=== PATIENT | female | born 1950 ===

== ENCOUNTER 2022-10-22 08:58 | Outpatient (CLI) | payer MEDICARE, BC, SELFPAY | END 2022-10-22 08:59 | disposition home or self-care (01) | PROVIDERS: PCP Family Medicine; Visit Provider Orthopaedic Surgery Sports Medicine | DX: Z20.822 Contact with and (suspected) exposure to COVID-19 (principal); Z01.818 Encounter for other preprocedural examination | CPT/HCPCS: 36415; 86850; 86900; 86901 ==

== ENCOUNTER 2022-10-23 10:36 | Day surgery (SDC) | payer MEDICARE, BC, SELFPAY ==
[2022-10-23] VITALS (22 sets, daily range): BP systolic 103–144; BP diastolic 65–91; PULSE 55–81; RESP 12–18; TEMP 35.8–36.6; O2SAT 92–99; BMI 33.9
--- NOTE | 2022-10-23 10:57 | CRLHL7_ITS ---
For Patients: As a result of the Cures Act, medical imaging exams and procedure reports are released immediately into your electronic medical record. You may view this report before your referring provider. If you have questions, please contact your health care provider. Indication: HIP REPLACEMENT POST OP Technique: AP hip centered pelvis and lateral view left hip Findings/Impression: Hardware from a left total hip arthroplasty is in satisfactory position. Bone alignment is normal. No sign of acute fracture. Postop changes are within normal limits. Dictated by Rome Alford MD @ 10/24/2022 10:52:46 AM (Electronically Signed)
[2022-10-23] MEDS: LACTATED RINGERS 1000 ML 1,000 ML 100 ML IV (11:00)
[2022-10-23] MEDS: SODIUM CHLORIDE 0.9 % (FLUSH) 10 ML SYRINGE IVF (11:00)
[2022-10-23] MEDS: ACETAMINOPHEN 500 MG TABLET 1000 MG PO ×2 (11:10→18:39)
[2022-10-23] MEDS: OXYCODONE (CR) 10 MG TAB.ER.12H PO (11:10)
[2022-10-23] MEDS: MIDAZOLAM HCL 1 MG/ML inj IVP (11:25)
[2022-10-23] MEDS: fentaNYL 100 MCG/2 ML inj IVP (11:25)
--- NOTE | 2022-10-23 11:40 | SUR.PREOP ---
TIME?OUT:?1125 PT/gloria deluca RN/patricia he MDA?VERIFICATION?OF?SURGICAL?SITE,?PROCEDURE,?AND?CONSENT OBTAINED?PRIOR?TO?INVASIVE?PROCEDURE.
--- NOTE | 2022-10-23 12:26 | P.NB_ITS ---
Nerve Block Nerve Block Time Seen by Provider: 11:30 Date Seen: 10/23/22 Type of block requested by surgeon for post-operative analgesia: PRIMITIVO/LFCN Side: left Time out performed: Yes Verification of patient name: Yes Verification of date of : Yes Site marking: site marked Name of person performing procedure: Lg Continuous monitoring Was continuous monitoring of O2 sat, B/P, cardiac monitor technician, recorded every 15 minutes?: Yes Procedure Checklist: sterile prep, needles and gloves Ultrasound guided. Images saved: Yes Medications given in 5ml increments after negative aspiration: Ropivicaine %: 0.5 mL: 30 Needle gauge: 20 Decadron (mg): 10 Precedex (mcg): 25 Patient tolerated procedure well: Yes Additional comments: Needle noted below psoas tendon needle noted adjacent to LFCN Block Charges Block Charge (with Pro Fee): Other Periph Nerve Block Use of Ultrasound Machine for Block: Yes- US Guidance/pain block
--- NOTE | 2022-10-23 12:26 | W.ANESCHARGE ---
Anesthesia Charges Start Date/Time Anesthesia Start Date: 10/23/22 Anesthesia Start Time: 12:37 Stop Date/Time Anesthesia Stop Date: 10/23/22 Anesthesia Stop Time: 15:18 Summary Extremes of Age - Over 70 or under 1: MDA
[2022-10-23] MEDS: CEFAZOLIN 2 GM in 0.9 % SODIUM CHLORIDE Mini-bag 100 ML IVPB ×2 (12:45→18:40)
--- NOTE | 2022-10-23 12:45 | CRLHL7_ITS ---
For Patients: As a result of the Cures Act, medical imaging exams and procedure reports are released immediately into your electronic medical record. You may view this report before your referring provider. If you have questions, please contact your health care provider. Indication: Hip replacement surgery Technique: AP hip fluoroscopic image. Fluoroscopy time 38.6 seconds. Findings/Impression: Hardware from a left total hip arthroplasty is in satisfactory position. Dictated by Rome Alford MD @ 10/24/2022 10:49:29 AM (Electronically Signed)
[2022-10-23] MEDS: TRANEXAMIC ACID 100 MG/ML INJ 1000 MG IV (12:47)
--- NOTE | 2022-10-23 14:22 | P.ORPRC_ITS ---
Procedure Note Date of procedure: 10/23/22 Procedure: PREOPERATIVE DIAGNOSIS: 1. Left hip osteoarthritis, severe, primary POSTOPERATIVE DIAGNOSIS: 1. Left hip osteoarthritis, severe, primary PROCEDURE: 1. Left total hip arthroplasty-anterior approach 2. 66871 - intraoperative fluoroscopy up to 1 hour. SURGEON: Kahlil Dickson MD. POLLUTION CONTROL CHEMIST: Chris Mahoney PA-C; RAFAEL Almazan - Of note, a skilled assistant oceanographer was critical for this case to aid in patient positioning, tissue retraction, limb manipulation/positioning, dislocation/relocation, patient safety, and closure. ANESTHESIA: Spinal anesthetic EBL: 300 mL IMPLANTS: DePuy J&J uncemented total hip [place] cup size 50, hole eliminator, +0 neutral liner Actis stem, standard offset, size 5 +1 mm ceramic 32mm head. COMPLICATIONS: None evident INDICATIONS: The patient is a pleasant 72-year-old female who has experienced severe left hip pain and difficulty bearing weight. Workup included x-rays which revealed severe osteoarthrosis in the hip. Given the deformity, the dysfunction, and the pain, as well as the failure of nonoperative management, recommendation was made for surgery. FINDINGS: Full-thickness chondral loss throughout the femoral head as well as superiorly on the acetabulum. Moderate effusion upon entering the joint. Significant scarring of the capsule to the femoral neck DESCRIPTION OF PROCEDURE: Following a thorough discussion of risks, benefits, and alternatives consent was obtained and the left hip was marked. The patient was brought to the operating room and placed supine on the operating table. Induction of anesthesia was undertaken. 2 g IV Ancef and 1 g tranexamic acid was administered within 1 hr of incision preoperatively. Proper time-out was performed identifying proper patient, site, procedure. The operative extremity was prepped and draped in the appropriate sterile fashion using ChloraPrep after the patient was positioned on the [place] table with head in neutral alignment and all bony prominences well padded. C-arm fluoroscopic imaging was utilized to confirm proper pelvis rotation and position, and to get true AP films of both the contralateral left, and the affected left hip. This is for comparison. A longitudinal incision was made starting approximately 1 cm distal to the ASIS, and 3-4 cm lateral. The incision was extended distally aiming toward the lateral border the patella. Sharp incision through skin and bovie cautery thr ough the subcutaneous tissue allowed identification of the TFL fascia. This was sharply divided, and the fascia bluntly released from the muscle fibers as we dissected medial. Upon coming to the medial border, we were able to retract the TFL laterally, and penetrated the deeper fascia and identify the crossing circumflex vessels. These were ligated/cauterized. The rectus was elevated from the capsule, and retractors placed laterally and medially along the femoral neck to help with visualization of the capsule. We then performed an inverted T capsulotomy. The capsule was tagged for later repair. Retractors were placed inside the capsule. The femoral neck was visualized after releasing medially down to the lesser trochanter, along the saddle laterally, and up onto the acetabulum. The femoral neck cut was made in line with our preoperative templating. The head was removed in a single piece, and sized. We turned our attention to acetabular preparation. Initially, the labrum was r esected from around the perimeter, the pulvinar was excised, allowing us to visualize the false wall. We started the reaming with a 43 mm reamer. This was medialized down to the true wall. We then enlarged our reamers sequentially up to one size less than the selected cup size. We trialed at the same size and found it to have an excellent fit. The selected cup was then opened, inserted, and impacted in line with the goal of 40-45? of abduction, and 20-25? of anteversion. This was confirmed on C-arm fluoroscopic imaging to be in the appropriate/goal position. Once the cup was placed we placed a hole eliminator and a liner consistent with preop planning. Attention was turned to the femoral preparation. The limb was extended, externally rotated, and adducted. The posteromedial capsule was released, as retractors were placed allowing excellent access to the proximal femur. Initially a box car bracer was followed by canal finder followed by various broaches. We broached sequentially up to size noted above, found it to have excellent rotational control, and trialing various heads and necks, revealed that appropriate neck offset, and the above noted head size provided the greatest stability, and gnosticism of length, and offset. C-arm fluoroscopic imaging confirmed position of the stem, as well as leg lengths, which were compared with the pre procedure all fluoroscopic images. Trial implants were removed, the real femoral stem inserted, as was the ceramic head. After reducing, the leg was placed through range of motion and stability was confirmed anterior, posterior, and lateral. A 3 min Betadine soak was then performed, and thorough irrigation with normal saline followed. Closure of the capsule was performed with #1 PDS. Bleeding was confirmed to be controlled at this stage, and the TFL fascia was closed with #0 strata fix. Subcutaneous, and subcuticular closure was performed with 2-0 Vicryl and 4-0 Monocryl, respectively. Dressings were applied, and the patient was awoken from anesthesia and transferred the PACU in stable condition. A skilled assistant oceanographer was critical for this case to aid in patient positioning, tissue retraction, proximal femur exposure, limb manipulation/positioning, dislocation/relocation, patient safety, and closure. PLAN: 1. Weight bear as tolerated operative extremity. 2. 23 hr perioperative antibiotics. 3. Ice. 4. PT/OT consults for ambulation assistance/mobility education. 5. Social work consult for discharge planning. 6. DVT prophylaxis with at SCDs, [place], and Xarelto x5 days followed by aspirin for a total of 1 month..
--- NOTE | 2022-10-23 15:21 | W.ANESCHARGE ---
Anesthesia Charges Start Date/Time Anesthesia Start Date: 10/23/22 Anesthesia Start Time: 12:37 Stop Date/Time Anesthesia Stop Date: 10/23/22 Anesthesia Stop Time: 15:18 Summary Extremes of Age - Over 70 or under 1: SERVICING MANAGER
[2022-10-23] MEDS: LACTATED RINGERS 1000 ML 1,000 ML 75 ML IV (16:32)
--- NOTE | 2022-10-23 16:59 | P.IMCN_ITS ---
Date of Consult Patient: Master Patient Consult date: 10/23/22 Requesting Physician: Orthopedics Primary Care Provider: Axel Tidwell DO Consult Narrative Reason for consult: Manage postop HTN, DMT2, nephrolithiasis, HLD Narrative: Fransisca Zepeda is a 72 year old woman with known severe left coxarthosis, presents for elective left total hip arthroplasty. This is undertaken successfully under spinal anesthesia. Estimated blood loss 300 mL. No obvious overt complication postoperatively. Pain well managed at this time. Review of Systems Status of ROS: Reports: 10 or more systems reviewed and unremarkable except as noted in History and below Narrative: Generally does well at home. No recent trauma, injury, illness, or travel. Denies angina, anginal equivalent. Denies syncope or near-syncope. Denies dyspnea at rest, paroxysmal nocturnal dyspnea, or orthopnea. Denies dependent edema. Denies nausea vomiting. Denies palpitations or chest fluttering. Denies fevers, rigors, diaphoresis. No dysuria, urgency, frequency, or eryn turia. No diarrhea or constipation. No new rashes. Denies night sweats, weight loss, weight gain. No focal motor neurologic deficits. Denies myalgias. Acknowledges arthralgias including of the left hip. She designates her daughter, Unique, as her power of assistant prosecuting attorney for health should that be required. Unique's telephone number is [phone]. Patient requests full resuscitation in the event of cardiopulmonary demise. [facility] Medical History (Updated 10/23/22 @ 17:07 by Israel Sy MD) Bradycardia Chronic kidney disease, stage 3 Complete atrioventricular block DDD (degenerative disc disease), lumbar Degenerative joint disease (DJD) of lumbar spine Depression Diabetes Diabetes mellitus type 2 in obese Elevated cholesterol Elevated liver enzymes Endometrioid carcinoma Endometriosis Episode of altered cognition Fatty liver Foraminal stenosis of lumbar region Greater trochanteric bursitis of right hip History of migraine headaches History of nephrolithiasis History of vaginal delivery Hyperlipidemia Hypertension Hypoglycemia Incontinence of urine Migraine headache Mixed hearing loss, bilateral Osteoarthritis of left hip Otosclerosis Pre-syncope Sleep apnea Tendinitis involving right hip abductors Vitamin D deficiency Surgical History H/O: hysterectomy History of arthroscopy of right shoulder (06/11/07) History of carpal tunnel surgery of left wrist (05/29/16) History of carpal tunnel surgery of right wrist (04/24/16) History of ear surgery History of lumbar laminectomy History of total right hip arthroplasty (08/20/07) Status post open reduction with internal fixation (ORIF) of fracture of ankle (~2016) Status post placement of cardiac pacemaker Family History Mother CHF (congestive heart failure) High blood pressure Heart disease Brother CHF (congestive heart failure) High blood pressure Diabetes Father Alzheimers disease Psychiatric illness Social History Smoking Status: Never smoker Do you use any of these nicotine containing products: None Second hand tobacco smoke exposure: No How often do you have a drink containing alcohol: 2-4 times a month Alcohol type: beer and hard liquor How many standard drinks containing alcohol do you have on a typical day: 1 or 2 How often do you have six or more drinks on one occasion: Never AUDIT-C Alcohol total score: 2 Non-prescribed substance use: denies use Caffeine: Yes (coffee, 1-2 cups/day) Meds Home Medications and Allergies Home Medications Medication Instructions Recorded Confirmed Type amlodipine 5 mg tablet 5 mg PO DAILY 09/17/22 10/23/22 History dulaglutide 3 mg/0.5 mL 3 mg subcut Q7D 09/17/22 10/23/22 History subcutaneous pen injector (Trulicity) escitalopram oxalate 10 mg tablet 10 mg PO DAILY 09/17/22 10/23/22 History flash glucose sensor (FreeStyle #1 ea 09/17/22 09/17/22 History Sofia 14 Day Sensor kit) gabapentin 100 mg capsule 100 mg PO HS 09/17/22 10/23/22 History pen needle, diabetic 32 gauge x #50 ea 09/17/22 09/17/22 History 5/32 (BD Ultra-Fine Stormy Pen Needle) sodium bicarbonate 650 mg tablet 650 mg PO BID 09/17/22 10/23/22 History acetaminophen 500 mg tablet 1,000 mg PO TID 09/19/22 10/23/22 History aspirin 81 mg tablet,delayed 81 mg PO DAILY 09/19/22 10/23/22 History release cholecalciferol (vitamin D3) 25 1,000 unit PO DAILY 09/19/22 10/23/22 History mcg (1,000 unit) capsule oxycodone 5 mg tablet 5 mg PO BID PRN 09/19/22 10/23/22 History diclofenac sodium 1 % topical gel 2 g topical QID 10/17/22 10/23/22 History Allergies Allergy/AdvReac Type Severity Reaction Status Date / Time pravastatin Allergy Unknown myalgia Verified 10/23/22 15:30 exenatide Allergy Diarrhea Verified 10/23/22 15:30 NSAIDS (Non-Steroidal Allergy Verified 10/23/22 10:49 Anti-Inflamma pioglitazone Allergy Verified 10/23/22 15:30 rosuvastatin AdvReac myalgia Verified 10/23/22 15:30 Exam Narrative: Exam Narrative: Appears comfortable, no acute distress. Can indeed move her toes now. Alert, oriented to self, place, time, situation. Friendly, cooperative, articulate. Mood and affect are congruent. Neck is supple. Midline trachea. No JVD or hepatojugular reflux. No carotid bruits. No lymphadenopathy in the pre or postauricular chains, anterior-posterior cervical chains, supra infraclavicular fossa, submandibular or submental fossa, or axilla bilaterally. Lungs are clear to auscultation without wheezing, rhonchi, or rales. No CVA tenderness. Heart tones with regular rhythm, normal S1-S2. No murmur, gallop, or rub. I can not palpate the pacemaker in the left upper chest, no fluctuance, erythema, induration. Abdomen with active bowel sounds, soft, nontender. Skin is warm, dry, intact. I do not evaluate surgical incision site. Const: Vital Signs, click to edit/add: Vital Signs - 24 hr 10/23/22 11:16 10/23/22 11:24 10/23/22 11:30 Temperature 97.9 F Pulse Rate 81 71 69 Pulse Rate [Pulse Oximeter] Respiratory Rate 18 18 18 Blood Pressure 130/82 144/91 H 141/85 H Blood Pressure [Ri ght Arm] Pulse Oximetry 95 99 99 Oxygen Delivery Me thod Room Air Nasal Cannula Nasal Cannula Oxygen Flow Rate 2 2 10/23/22 11:45 10/23/22 12:00 10/23/22 12:15 Temperature Pulse Rate 64 64 69 Pulse Rate [Pulse Oximeter] Respiratory Rate 16 16 16 Blood Pressure 116/73 103/73 115/76 Blood Pressure [Ri ght Arm] Pulse Oximetry 99 99 98 Oxygen Delivery Me thod Nasal Cannula Nasal Cannula Nasal Cannula Oxygen Flow Rate 2 2 2 10/23/22 12:30 10/23/22 15:15 10/23/22 15:40 Temperature 98 F Pulse Rate 63 61 55 L Pulse Rate [Pulse Oximeter] Respiratory Rate 16 16 16 Blood Pressure 125/78 118/73 133/81 Blood Pressure [Ri ght Arm] Pulse Oximetry 99 96 98 Oxygen Delivery Me thod Nasal Cannula Room Air Oxygen Flow Rate 2 10/23/22 15:20 10/23/22 15:25 10/23/22 15:30 Temperature Pulse Rate 59 L 58 L 58 L Pulse Rate [Pulse Oximeter] Respiratory Rate 16 12 12 Blood Pressure 117/75 126/82 123/78 Blood Pressure [Ri ght Arm] Pulse Oximetry 98 98 98 Oxygen Delivery Me thod Room Air Oxygen Flow Rate 10/23/22 15:35 10/23/22 15:45 10/23/22 16:00 Temperature 97.5 F L 96.4 F L Pulse Rate 61 59 L 58 L Pulse Rate [Pulse Oximeter] Respiratory Rate 12 16 14 Blood Pressure 131/75 133/88 Blood Pressure [Ri ght Arm] 119/65 Pulse Oximetry 97 98 Oxygen Delivery Me thod Room Air Room Air Oxygen Flow Rate 10/23/22 16:15 Temperature 97.1 F L Pulse Rate Pulse Rate [Pulse Oximeter] 56 L Respiratory Rate 14 Blood Pressure Blood Pressure [Ri ght Arm] 125/67 Pulse Oximetry 94 Oxygen Delivery Me thod Room Air Oxygen Flow Rate Documenting provider has reviewed patient's vital signs: yes Assessment and Plan Assessment and plan (1) Osteoarthritis of left hip: Status: Acute (2) S/P total left hip arthroplasty: Status: Acute (3) Hypertension: Status: Acute (4) Diabetes mellitus type 2 in obese: Status: Acute (5) Hyperlipidemia: Status: Acute (6) History of nephrolithiasis: Status: Acute (7) Pacemaker: Status: Acute Plan 1. Reviewed impression with patient and daughter. Answered their questions. 2. Sliding scale insulin for blood sugar management while in hospital. 3. Restart amlodipine tomorrow morning for hypertension. 4. Continue with escitalopram and sodium bicarbonate. 5. Agree with perioperative antibiotic prophylaxis. 6. Agree with postoperative venous thromboembolism prophylaxis. 7. Hospitalist will be available to assist while patient is in the hospital. 8. From hospitalist perspective, patient may be discharged from the hospital as soon as Orthopedic surgery makes a determination of this. 9. Patient and daughter are agreeable to above stated plans and recommendations.
[2022-10-23] MEDS: OXYCODONE 5 MG TABLET PO (19:20)
[2022-10-23] MEDS: SENNOSIDES 1 TAB TABLET 2 TAB PO (21:40)
[2022-10-23] MEDS: GABAPENTIN 100 MG CAPSULE PO (21:41)
[2022-10-23] MEDS: SODIUM BICARBONATE 650 MG TABLET PO (21:41)
--- NOTE | 2022-10-23 22:10 | PC.NURSE ---
Blood glucose at HS 267 per primary nurse. SSI given as ordered. Updated Dr. Sy, per MD no need to draw lab glucose. To recheck blood glucose at 0200 and apply sliding scale as needed.
[2022-10-24] MEDS: ACETAMINOPHEN 500 MG TABLET 1000 MG PO ×3 (01:23→11:51)
[2022-10-24 02:47] VITALS: TEMP 36.4
[2022-10-24 03:00] VITALS: BP 123/70; PULSE 72; RESP 16; TEMP 36.6; O2SAT 96
[2022-10-24] MEDS: CEFAZOLIN 2 GM in 0.9 % SODIUM CHLORIDE Mini-bag 100 ML IVPB ×2 (03:20→10:28)
[2022-10-24] MEDS: OXYCODONE 5 MG TABLET PO ×3 (03:56→15:20)
[2022-10-24] MEDS: LACTATED RINGERS 1000 ML 1,000 ML 75 ML IV (05:23)
--- NOTE | 2022-10-24 05:58 | PC.NURSE ---
VSS on 1L of O2 via NC. Patient is alert and oriented x3, able to verbalize needs to staff. Edward is managed with PRN Oxycodone 5m x2 and scheduled Tylenol. Patient was up to bathroom x2 with assist of one using gait belt and walker, voiding adequately. Pt is continent of bowel and bladder. Patient had elevated BG of 467, 12 units given per sliding scale. MD notified and ordered to rechecked BG @ 02:00. BG rechecked with 362, 10 units given. Patient is stable, no s/s of hyperglycemia noted. Call light within reach.
[2022-10-24 06:42] LABS: Immature Granulocytes Pct Auto 0.2 %; Lymphocytes Percent Auto 6.8 % (20-44); Mean Corpuscular HGB Conc 33 gm/dL (32-36); Mean Corpuscular Hemoglobin 30 pg (26-34); Mean Corpuscular Volume 91 fL (80-100); Monocytes Percent Auto 4.9 % (0.0-11.0); Neutrophils Percent Auto 88.1 % (42.0-72.0); Platelet Count* 180 K/uL (140-440); RDW Coefficient of Variation % 13.1 % (11.5-15.5); Red Blood Count 3.98 m/uL (4.00-5.20); White Blood Count* 13.59 K/uL (4.50-11.00)
[2022-10-24 06:44] LABS: Slide Review Reflex No
[2022-10-24 06:54] LABS: Potassium* 4.4 mmol/L (3.6-5.1); Sodium* 136 mmol/L (135-149)
[2022-10-24 06:57] LABS: Creatinine* 0.8 mg/dL (0.5-1.5); Est. Creatinine Clearance* 39.63; Estimated Glomerular Filt Rate 78 ml/min
[2022-10-24 06:58] LABS: Blood Urea Nitrogen* 22 mg/dL (7-30)
[2022-10-24 08:10] VITALS: BP 114/66; PULSE 75; RESP 14; TEMP 36.7; O2SAT 94
[2022-10-24] MEDS: AMLODIPINE 5 MG TABLET PO (09:09)
[2022-10-24] MEDS: SODIUM BICARBONATE 650 MG TABLET PO (09:09)
[2022-10-24] MEDS: RIVAROXABAN 10 MG TABLET PO (09:09)
[2022-10-24] MEDS: SENNOSIDES 1 TAB TABLET 2 TAB PO (09:09)
[2022-10-24] MEDS: ESCITALOPRAM 10 MG TABLET PO (09:09)
[2022-10-24 11:44] VITALS: BP 136/73; PULSE 79; RESP 18; TEMP 37.2; O2SAT 92
--- NOTE | 2022-10-24 12:28 | PM.ORPN ---
Subjective Subjective Date Seen: 10/24/22 Principal diagnosis: Status postop day 1, left total hip arthroplasty - anterior approach Interval history: Patient reports doing well. No acute events over night. Pain managed with scheduled /PRN medications and ice. DVT prophylaxis rivaroxaban, bilateral knee high Brown stockings, and SCDs. Denies fevers, chills, aches, N/V, CP, SOB/ZARATE, tachycardia, or lightheadedness. Of note, she reports to me a 40 lb weight loss over the last few months, intentional when she switched diabetes medication. Ortho Exam Narrative Exam Narrative: -Patient appears comfortable in recliner; no apparent acute distress -Alert and oriented times 3 -Operative hip swollen; soft tissues supple; no obvious erythema. Warmth appropriate -Surgical dressing clean, dry, intact; no obvious drainage, no erythematous streaking peripheral to the bandage -Bilateral calves soft and supple; no significant swelling, edema, tenderness, erythema, discoloration, warmth, or palpable cords -2+ DP/PT pulses, intact dermatomes and myotomes distally (5/5 strength). No numbness about the lateral femoral cutaneous nerve distribution. Const Vital Signs, click to edit/add: Vital Signs - 24 hr 10/23/22 12:30 10/23/22 15:15 10/23/22 15:40 Temperature 98 F Pulse Rate 63 61 55 L Pulse Rate [Pulse Oximeter] Respiratory Rate 16 16 16 Blood Pressure 125/78 118/73 133/81 Blood Pressure [Right Arm] Pulse Oximetry 99 96 98 Oxygen Delivery Method Nasal Cannula Room Air Oxygen Flow Rate 2 10/23/22 15:20 10/23/22 15:25 10/23/22 15:30 Temperature Pulse Rate 59 L 58 L 58 L Pulse Rate [Pulse Oximeter] Respiratory Rate 16 12 12 Blood Pressure 117/75 126/82 123/78 Blood Pressure [Right Arm] Pulse Oximetry 98 98 98 Oxygen Delivery Method Room Air Oxygen Flow Rate 10/23/22 15:35 10/23/22 15:45 10/23/22 16:00 Temperature 97.5 F L 96.4 F L Pulse Rate 61 59 L 58 L Pulse Rate [Pulse Oximeter] Respiratory Rate 12 16 14 Blood Pressure 131/75 133/88 Blood Pressure [Right Arm] 119/65 Pulse Oximetry 97 98 Oxygen Delivery Method Room Air Room Air Oxygen Flow Rate 10/23/22 16:15 10/23/22 16:30 10/23/22 16:45 Temperature 97.1 F L 96.8 F L Pulse Rate Pulse Rate [Pulse Oximeter] 56 L 61 63 Respiratory Rate 14 16 Blood Pressure Blood Pressure [Right Arm] 125/67 123/67 122/71 Pulse Oximetry 94 93 92 Oxygen Delivery Method Room Air Room Air Room Air Oxygen Flow Rate 10/23/22 17:00 10/23/22 17:30 10/23/22 18:00 Temperature 97.1 F L 97.5 F L 97.3 F L Pulse Rate Pulse Rate [Pulse Oximeter] 62 65 68 Respiratory Rate 18 16 16 Blood Pressure Blood Pressure [Right Arm] 124/77 142/81 H 135/89 Pulse Oximetry 92 92 92 Oxygen Delivery Method Room Air Room Air Room Air Oxygen Flow Rate 10/23/22 23:00 10/23/22 23:00 10/24/22 02:47 Temperature 97.5 F L 97.5 F L Pulse Rate Pulse Rate [Pulse Oximeter] 76 76 Respiratory Rate 16 16 Blood Pressure Blood Pressure [Right Arm] 116/73 Pulse Oximetry 96 Oxygen Delivery Method Room Air Oxygen Flow Rate 10/24/22 03:00 10/24/22 08:10 10/24/22 11:44 Temperature 97.8 F 98.1 F 99.0 F Pulse Rate Pulse Rate [Pulse Oximeter] 72 75 79 Respiratory Rate 16 14 18 Blood Pressure Blood Pressure [Right Arm] 123/70 114/66 136/73 Pulse Oximetry 96 94 92 Oxygen Delivery Method Room Air Room Air Oxygen Flow Rate Assessment and Plan Assessment and plan (1) Osteoarthritis of left hip: Status: Resolved (2) S/P total left hip arthroplasty: Problem details: FABIAN-AA (10/23/2022, Dr. Dickson) Status: Acute (3) Hypertension: Status: Acute (4) Diabetes mellitus type 2 in obese: Status: Acute (5) Hyperlipidemia: Status: Acute (6) History of nephrolithiasis: Status: Acute (7) Pacemaker: Status: Acute Plan - Complete 23 hour perioperative antibiotics. - PT/OT consult for education and assistance. - Social work consult for discharge planning - Prescribed analgesics as needed - DVT prophylaxis: Rivaroxaban, bilateral knee high Brown Hose stockings and SCDs - Anticipation is for discharge to home with family 10/24/2022 if the patient remains medically stable, pain is controlled, and they are safe with mobilization.
--- NOTE | 2022-10-24 12:31 | P.DS_ITS ---
DS: Providers Provider Date Seen: 10/24/22 Date of admission: Med/Surg Recovery 10/23/2022 Primary care physician: Axel Tidwell DO Consults: 10/23/22 15:59 Consult to Occupational Therapy [CONS] Routine Comment: Reason(s) for OT Consult:: ADLs Prior to Discharge Any Restrictions?:: No Restrictions Comment: Consult to Physical Therapy [CONS] Routine Comment: Ambulate in the [place] today Reason(s) for PT Consult:: Evaluate and Treat Any Restrictions?:: No Restrictions Comment: Nursing Activity Consult to Physician [CONS] Routine Comment: Consulting Provider: Hospitalists Has provider been notified: No 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 Dickson) DS: Summary Hospital Course Hospital Course: The patient has a history of left hip osteoarthritis, primary, severe. After appropriate preoperative evaluation, the patient underwent left total hip arthroplasty. Postoperatively given anticoagulation for deep vein thrombosis prophylaxis. They progressed to PT/OT and were felt ready and prepared for discharge to home with appropriate pain medication and anticoagulation medications. Status at Discharge Functional status at discharge: uses cane/walker Overall status at discharge: patient is progressing back to baseline Time Spent with Patient Time attestation: Total time spent providing and/or coordinating discharge services: Time spent: Less than 30 minutes Exam Const: Vital Signs, click to edit/add: Vital Signs - 24 hr 10/23/22 15:15 10/23/22 15:40 10/23/22 15:20 Temperature 98 F Pulse Rate 61 55 L 59 L Pulse Rate [Pulse Oximeter] Respiratory Rate 16 16 16 Blood Pressure 118/73 133/81 117/75 Blood Pressure [Ri ght Arm] Pulse Oximetry 96 98 98 Oxygen Delivery Me thod Room Air 10/23/22 15:25 10/23/22 15:30 10/23/22 15:35 Temperature Pulse Rate 58 L 58 L 61 Pulse Rate [Pulse Oximeter] Respiratory Rate 12 12 12 Blood Pressure 126/82 123/78 131/75 Blood Pressure [Ri ght Arm] Pulse Oximetry 98 98 97 Oxygen Delivery Me thod Room Air 10/23/22 15:45 10/23/22 16:00 10/23/22 16:15 Temperature 97.5 F L 96.4 F L 97.1 F L Pulse Rate 59 L 58 L Pulse Rate [Pulse Oximeter] 56 L Respiratory Rate 16 14 14 Blood Pressure 133/88 Blood Pressure [Ri ght Arm] 119/65 125/67 Pulse Oximetry 98 94 Oxygen Delivery Me thod Room Air Room Air Room Air 10/23/22 16:30 10/23/22 16:45 10/23/22 17:00 Temperature 96.8 F L 97.1 F L Pulse Rate Pulse Rate [Pulse Oximeter] 61 63 62 Respiratory Rate 16 18 Blood Pressure Blood Pressure [Ri ght Arm] 123/67 122/71 124/77 Pulse Oximetry 93 92 [facility] 10/23/22 17:30 10/23/22 18:00 10/23/22 23:00 Temperature 97.5 F L 97.3 F L Pulse Rate Pulse Rate [Pulse Oximeter] 65 68 76 Respiratory Rate 16 16 16 Blood Pressure Blood Pressure [Ri ght Arm] 142/81 H 135/89 Pulse Oximetry 92 92 [facility] Room Air 10/23/22 23:00 10/24/22 02:47 10/24/22 03:00 Temperature 97.5 F L 97.5 F L 97.8 F Pulse Rate Pulse Rate [Pulse Oximeter] 76 72 Respiratory Rate 16 16 Blood Pressure Blood Pressure [Ri ght Arm] 116/73 123/70 Pulse Oximetry 96 96 [facility] 10/24/22 08:10 10/24/22 11:44 Temperature 98.1 F 99.0 F Pulse Rate Pulse Rate [Pulse Oximeter] 75 79 Respiratory Rate 14 18 Blood Pressure Blood Pressure [Ri ght Arm] 114/66 136/73 Pulse Oximetry 94 92 Oxygen Delivery Me thod Room Air Room Air DS: Data Data Completed and Pending Labs on day of discharge: Labs from last 24 hours 10/24/22 10/24/22 05:45 05:45 WBC 13.59 H RBC 3.98 L Hgb 12.0 Hct 36.0 MCV 91 MCH 30 MCHC 33 RDW Coeff of Alicia 13.1 Plt Count 180 Neut % (Auto) 88.1 H Lymph % (Auto) 6.8 L [place] % (Auto) 4.9 Eos % (Auto) 0.0 Baso % (Auto) 0.0 Neut # (Auto) 12.00 H Lymph # (Auto) 0.90 [place] # (Auto) 0.70 Eos # (Auto) 0.00 Baso # (Auto) 0.00 Sodium 136 Potassium 4.4 BUN 22 Creatinine 0.8 Estimated Creat Clear 39.63 Estimated GFR 78 Discharge Plan Discharge Disposition: Home, Self-Care Discharging Surgeon: Kahlil Dickson Follow-Up Appointment: 1 week PO with ESTHER Perez Prescriptions: New sennosides-docusate sodium [Senna-S] 8.6-50 mg tablet 1 - 4 tab-cap PO BID PRN (Reason: constipation) Qty: 60 0RF Rx Instructions: Hold medication if experiencing loose stools. aspirin 81 mg tablet,delayed release (DR/EC) 81 mg PO BID Qty: 50 0RF Rx Instructions: Medication to help prevent blood clots postoperatively; take TWICE daily. oxycodone 5 mg tablet 2.5 - 5 mg PO Q4-6H MDD 6 PRN (Reason: pain) Qty: 42 0RF Rx Instructions: Take as needed for postop pain: 2.5mg mild pain, 5mg moderate-severe pain; wean as tolerated. rivaroxaban 10 mg tablet 10 mg PO DAILY Qty: 4 0RF Rx Instructions: Medication for deep vein clot prevention post surgery. Complete this medication before starting Aspirin. Continued Trulicity 3 mg/0.5 mL pen injector 3 mg subcut Q7D escitalopram oxalate 10 mg tablet 10 mg PO DAILY amlodipine 5 mg tablet 5 mg PO DAILY (DME) pen needle, diabetic [BD Ultra-Fine Stormy Pen Needle] 32 gauge x 5/32 needle See Rx Instructions .ROUTE .MEDSUPPLY Qty: 50 Rx Instructions: As directed sodium bicarbonate 650 mg tablet 650 mg PO BID gabapentin 100 mg capsule 100 mg PO HS (DME) FreeStyle Sofia 14 Day Sensor Kit See Rx Instructions .ROUTE .MEDSUPPLY Qty: 1 Label Comments: USE 1 SENSOR TO MONITOR BLOOD GLUCOSE FOR 14 DAYS, AFTER 14 [address] WITH NEW SENSOR Rx Instructions: As directed cholecalciferol (vitamin D3) 25 mcg (1,000 unit) capsule 1,000 unit PO DAILY acetaminophen 500 mg tablet 1,000 mg PO TID Rx Instructions: NO MORE THAN 4000 MG/DAY diclofenac sodium 1 % gel 2 g topical QID amoxicillin 500 mg capsule 2,000 mg PO ONCE Qty: 4 3RF Rx Instructions: Take 4 capsules (2000mg) 1 hour prior to dental appointment. Held aspirin 81 mg tablet,delayed release (DR/EC) 81 mg PO DAILY Hold Instructions: Resume on 11/21/22. Resume this dose upon completion of dosing prescribed by orthopedic surgery for post-operative blood clot prevention. Discontinued oxycodone 5 mg tablet 5 mg PO BID PRN Activity Level: Activity as Tolerated, Weight Bearing as Tolerated, Use Cane and Use Walker Activity Detail: Wound: ?Do not remove original dressing; we will remove this at first postop visit in 1 week. Only remove dressing if integrity is in question. ?No immersing wound in water; showering okay; light scrub with your hand and body soap, rinse, dab dry ?Sutures are under the skin, will dissolve; allow surgical glue to come off naturally; do not scrub the wound or apply ointments/lotions ?Call our office with any redness that streaks, excessive drainage from the wound, or wound gapping. Ice/Elevate: ?Ice as needed for swelling and discomfort (cryocuff or ice pack); elevate frequently above the heart TIAN socks: ?Wear for 1 month, remove for 1 hour 3 times per day ?These are frustrating to take on/off, but are important for blood clot prevention for 1 month after surgery Blood Clot Prevention (DVT): ?Medication: Rivaroxaban, and transition to 81 mg aspirin by mouth twice daily (total one month of protection). Driving: ?Do not drive while taking narcotic pain medication ?Anticipate 4-6 weeks no driving if operative leg is driving leg Dental: ?No elective dental work for 6 months post-op. If there is an urgent/emergent dental need, contact our office for an antibiotic prescription. Smoking/Alcohol: ?Do not smoke; do no drink alcohol especially when taking postoperative oral narcotic medication Seek Care from you Primary Care Provider if you experience the following issues in the postoperative phase and beyond: ?Bacterial infections such as: pneumonia, bacterial skin infection (cellulitis), UTI, high fever, chills unrelated to the operative body part - call your primary care physician urgently for treatment in hopes to protect your health and the metal implant. Referrals: ?PT, OT per patient preference - evaluate treat total hip arthroplasty protocol (gait training, ROM, ADLs) Follow up: ?Ortho surgeon follow-up in 6 weeks; repeat radiographs AP pelvis, cross-table lateral operative hip ?PA-C visit in 1 week *If there are any acute concerns regarding your surgery, please call our orthopedic clinic ([phone]) Discharge Diet: Diabetic Patient Instructions: Aspirin (By mouth), Oxycodone, Rapid Release (By mouth), Rivaroxaban (By mouth), Senna (By mouth), Surgical Site Infections (DC), Anterior Hip Replacement (DC) Forms: Work/School Release Follow-up: Axel Tidwell DO [Primary Care Provider] - Maya Vickers PA-C [Physician Events Associate] - 10/31/22 1:00 pm ([facility]--Orthopedic Clinic) Discharge Orders: Discharge Order (Routine); Ordered 10/24/22 Ordered By: Chris Mahoney Consulting provider completed their portion of the discharge: Yes
--- NOTE | 2022-10-24 13:37 | PC.NURSE ---
Pt calm and cooperative during shift. Pt 1 assist with walker. Pt up to chair. Pt has had pain ranging from 0-5 see EMAR for pharmacological interventions. Pt discharging home with daughter after 3pm today.
== END 2022-10-24 15:26 | disposition home or self-care (01) ==
LOC: OR 10:37 → MEDSURG 11:12
PROVIDERS: PCP Family Medicine; Visit Provider Orthopaedic Surgery Sports Medicine
PROC: (CPT 27130; principal; 2022-10-23 12:45)
DX: M16.12 Unilateral primary osteoarthritis, left hip (principal); M25.552 Pain in left hip; E66.9 Obesity, unspecified; Z87.442 Personal history of urinary calculi; Z95.0 Presence of cardiac pacemaker; I12.9 Hypertensive chronic kidney disease with stage 1 through stage 4 chronic kidney disease, or unspecified chronic kidney disease; E11.22 Type 2 diabetes mellitus with diabetic chronic kidney disease; N18.30 Chronic kidney disease, stage 3 unspecified; I44.2 Atrioventricular block, complete; E78.5 Hyperlipidemia, unspecified; Z85.42 Personal history of malignant neoplasm of other parts of uterus; M51.36 Other intervertebral disc degeneration, lumbar region; M48.061 Spinal stenosis, lumbar region without neurogenic claudication; Z68.34 Body mass index [BMI] 34.0-34.9, adult
CPT/HCPCS: 27130; 01214; 36415; 64450; 73501; 76000; 76942; 82565; 82962; 84132; 84295; 84520; 85025; 97110; 97116; 97161; 97165; 99100; A9270; C1776; J0690; J1100; J2250; J2704; J2795; J3010; J7120

== ENCOUNTER 2022-11-28 15:15 | Outpatient (RCR) | payer MEDICARE, BC, SELFPAY | END 2023-04-10 23:59 | disposition home or self-care (01) | PROVIDERS: Visit Provider Orthopaedic Surgery Sports Medicine | DX: M16.12 Unilateral primary osteoarthritis, left hip (principal); Z51.89 Encounter for other specified aftercare | CPT/HCPCS: 97110; 97112; 97161; 97162; 97164 ==

== ENCOUNTER 2022-12-17 14:02 | Outpatient (RCR) | payer MEDICARE, BC, SELFPAY | END 2023-01-21 15:03 | disposition home or self-care (01) | PROVIDERS: PCP Orthopaedic Surgery Sports Medicine; Visit Provider Orthopaedic Surgery Sports Medicine | DX: M16.12 Unilateral primary osteoarthritis, left hip (principal); Z96.642 Presence of left artificial hip joint; Z51.89 Encounter for other specified aftercare | CPT/HCPCS: 97165 ==

== ENCOUNTER 2024-10-16 10:33 | Emergency (ER) | payer MEDICARE, BC, SELFPAY ==
--- OUTSIDE RECORDS SUMMARY | 2024-10-16 10:36 | XMS_ITS | Clinical Summary ---
Author Organization [facility] Address [place], [place] [address] Care Team Providers Care Early Breastfeeding Care Specialist Name Role Phone Dolores Iyer RN Unavailable Lyn Story NP Primary Care Provider [phone] Allergies Active Allergy Reactions Criticality Noted Date Comments Pioglitazone Myalgia 06/27/2013 Urinary frequency Azithromycin Muscle Weakness 08/12/2024 Rosuvastatin Myalgia 03/10/2019 Exenatide Diarrhea,Vomiting 03/13/2012 Possible reaction Nsaids (Non-Steroidal Anti-Inflammatory Drug) *Unknown 04/12/2019 Pravastatin Myalgia 03/02/2015 Medications cholecalciferol (VITAMIN D) 1,000 unit tablet Take 1 tablet by mouth once daily. 0 08/08/20 15 Active acetaminophen (TYLENOL EXTRA STRGTH) 500 mg tablet Take 1,000 mg by mouth 3 times daily. Max acetaminophen dose: 4000mg in 24 hrs. Active aspirin chewable 81 mg chewable tablet Take 1 tablet by mouth once daily with a meal. 0 04/19/20 19 Active blood-glucose meterIndications:Un controlled type 2 diabetes mellitus with hyperglycemia (HC) Dispense meter, test strips, lancets covered by pt ins. E11.65 NIDDM type II, uncontrolled - Test 4 times/day. Reason: High A1C 1 Each 05/01/20 23 Active lancetsIndications: Uncontrolled type 2 diabetes mellitus with hyperglycemia (HC) As directed. Test 4 times per day. 100 Each 12 05/01/20 23 Active amLODIPine (NORVASC) 5 mg tabletIndications:H ypertension, unspecified type Take 1 Tablet (5 mg) by mouth once daily. HOLD IF SYSTOLIC BLOOD PRESSURE LESS THAN 100 90 Tablet 11/06/19 Active atorvastatin (LIPITOR) 10 mg tabletIndications:M ixed hyperlipidemia Take 1 tablet by mouth twice weekly for a couple weeks then every other day for cholesterol. 45 Tablet 11/06/19 24 Active blood sugar diagnostic (Blood Glucose Test) stripIndications:Un controlled type 2 diabetes mellitus with hyperglycemia (HC) Test 4 times per day. 100 Each 12 11/06/19 Active diclofenac topical (VOLTAREN) 1 % gelIndications:Store Mgr little right-sided low back pain with right-sided sciatica Apply 2 g topically to affected area(s) four times daily. 11/06/19 Active escitalopram oxalate (LEXAPRO) 10 mg tabletIndications:A djustment disorder with depressed mood,Bereavement reaction Take 1 Tablet (10 mg) by mouth every morning. 90 Tablet 11/06/19 Active gabapentin (NEURONTIN) 100 mg capsuleIndications: Left ankle pain, unspecified chronicity Take 1 Capsule (100 mg) by mouth at bedtime. 90 Capsule 11/06/19 Active Insulin [place], Disposable, (Stormy Pen Needle) 32 gauge x /32Indications:Ty pe 2 diabetes mellitus with microalbuminuria, without long-term current use of insulin (HC) As directed. To use with insulin once daily 50 Each 11/06/19 Active sodium bicarbonate 650 mg tabletIndications:T ype 2 diabetes mellitus with microalbuminuria, without long-term current use of insulin (HC),History of nephrolithiasis Take 1 Tablet (650 mg) by mouth two times daily. 360 Tablet 11/06/19 Active FreeStyle Sofia 2 SensorIndications:T ype 2 diabetes mellitus with microalbuminuria, without long-term current use of insulin (HC) WEAR ONE SENSOR FOR 14 DAYS, THEN CHANGE AND REPLACE WITH NEW SENSOR EVERY 14 DAYS 6 Each 01/13/20 24 Active FreeStyle Sofia 2 ReaderIndications:T ype 2 diabetes mellitus with microalbuminuria, without long-term current use of insulin (HC) To be used to read blood sugars per community pharmacist's directions. 1 Each 04/14/20 24 Active levothyroxine (SYNTHROID) 50 mcg tabletIndications:H ypothyroidism (acquired) Take 1 Tablet (50 mcg) by mouth before breakfast. 90 Tablet 2 06/15/20 24 Active semaglutide (Ozempic) 2 mg/3 mL subcutaneous penIndications:Type 2 diabetes mellitus without complication, with long-term current use of insulin (HC) Inject 0.5 mg subcutaneous once weekly. 3 mL 3 08/12/20 24 Active Lantus Solostar U-100 Insulin 100 unit/mL (3 mL) penIndications:Unco ntrolled type 2 diabetes mellitus with hyperglycemia (HC) Inject 26 units subcutaneous before bedtime. Product desired: LANTUS SOLOSTAR 9 mL 5 08/13/20 24 Active Active Problems Problem Noted Date Diagnosed Date Potential for cognitive impairment 08/06/2023 S/P ORIF (open reduction internal fixation) frac ture 03/29/2019 Foraminal stenosis of lumbar region 04/28/2015 DDD (degenerative disc disease), lumbar 04/28/20 Fatty liver 05/31/2014 Elevated liver enzymes 05/28/2014 Mixed hearing loss, bilateral 03/30/2013 History of otosclerosis 03/30/2013 CKD (chronic kidney disease) stage 3, GFR 30-59 ml/min 07/14/2012 Mixed hyperlipidemia 06/12/2012 ACP (advance care planning) 02/05/2012 Overview (02/05/2012): Advance Care Plan Documents No Documents on File Migraine, unspecified, witho ut mention of intractable migraine without mention of status migrainosus 02/11/2007 History of nephrolithiasis Vitamin D deficiency AVB (atrioventricular block) Type 2 diabetes mellitus without complication HTN (hypertension) Resolved Problems Problem Noted Date Diagnosed Date Resolved Date Type 2 diabetes mellitus wit h microalbuminuria, without long-term current use of insulin 10/03/2022 10/03/2022 Malignant neoplasm of endometrium 05/29/2021 10/03/2022 Ankle fracture 04/12/2019 10/03/2022 Fever 05/28/2014 10/03/2014 Abdominal pain 05/28/2014 10/03/2022 Cough 05/28/2014 10/03/2014 Bladder infection, acute 05/28/201408/2015 Medical Home 12/04/2011 03/06/2012 [facility] Contract 04/23/2010 012 Overview (04/23/2010): This patient, PCP and Care Guide have signed a letter agreeing on a set of goals for diabetes, hypertension and/or CHF. Please look for [facility] Care Goal Contract in Chart Review/ Letters and support this effort. Please direct questions to Care Guide Atiya EngelSocorro Mohannoemí Phone number [phone]. Other abnormal glucose 09/17/200704/08 Pain in joint, shoulder region 03/16/2007 06/12/2012 Pain in joint, pelvic region and thigh 03/16/2007 06/12/2012 Encounter for long-term (cur rent) use of other medications 03/16/2007 10/03/2022 Obesity, unspecified 03/16/2007 023 Hypertension 02/11/2007 10/03/2022 Diabetes type 2, uncontrolled 10/03/2022 Endometrioid adenocarcinoma 10/03/2022 Overview (04/28/2012): [facility] Syncope 10/03/2022 Bradycardia 10/03/2022 Syncope, cardiogenic 023 Encounters Date Type Department Care Team Description 08/12/2024 3:10 PM ASSISTANT PROFESSOR OF EDUCATION Office Visit [address] [address] Lyn Story NP Diabetes (3 month) 08/12/2024 Travel 08/11/[address] [address] Lady Cheung NP Refill Request (Lantus Solostar U-100 Insulin) 08/08/2024 Travel from Last 3 Months Immunizations Name Administration Dates Next Due COVID-19 VACCINE SPIKEVAX (M ODERNA 50MCG/0.5ML) 12YO+ PFS 08/05/2023 COVID-19 vaccine (Moderna 100mcg/0.5mL) PF, MDV 09/17/2021 COVID-19 vaccine (Pfizer-Bio NTech 30mcg/0.3mL) 12YO+ BIVALENT PF, MDV 10/03/2022 COVID-19 vaccine (Pfizer-Bio NTech 30mcg/0.3mL) PF, MDV 12/12/2020,11/21/2020 Influenza, High-dose Inactivated 08/29/2016,07/23,07/11/2014 Influenza, IIV3 (Age >=3 years) 06/24/20 13,06/12/2012,08/09/2011,2009 Influenza, Inactivated AIIV4 (Age 65+ Years) Preserv Free 08/05/2023,08/19/2022,05/29/2021 Influenza, Inactivated IIV3 (Age 65+ Years) Preserv Free 06/15/2019,06/08/2018,07/21/2017 Pneumococcal Poly,23-Valent (Pneumovax) 08/20/2019,07/10/2010,09/22/2009 Pneumococcal conj 13-Valent (Prevnar 13) 03/01/2016 Td (Age >=7 Years) 02/27/2004 Tdap 12/23/2013 Zoster (Shingrix-RZV, recombinant) 04/09/2023, Zoster (Zostavax-ZVL, live) 03/13/2012 Family History Medical History Relation Name Comments Diabetes Brother 1 x2, Dx 50s Hypertension Brother 2 Psychiatric illness Father Dx age 8 0s, Alzheimers Hearing loss Mother Heart Disease Mother Hypertension Mother Cancer-breast No Family History Relation Name Status Comments Brother 1 Brother 2 Father (Age 84) Mother old age Social History Tobacco Use Types Packs/Day Years Used Date Smoking Tobacco: Never Passive Smoke Exposure: Never Smokeless Tobacco: Never Tobacco Cessation:Counseling Given: Not Answered Alcohol Use Standard Drinks/Week Comments Yes 0 (1 standard drink = 0.6 oz pur e alcohol) once weekly PHQ-2 Answer Date Recorded PHQ-2 TOTAL SCORE 0 11/06/2023 Social Connections Answer Date Recorded Do you often feel lonely or isolated from those around you? 0 12/24/2023 Financial Resource Strain Answer Date R ecorded Difficulty of Paying Living Expenses 3 12/24/2023 Difficulty of Paying Living Expenses Not on file 12/24/2023 Food Insecurity Answer Date Recorded Do you worry your food will run out before you are able to buy more? 1 12/24/2023 Transportation Needs Answer Date Record ed Does lack of transportation keep you from medica l appointments? 1 12/24/2023 Does lack of transportation keep you from work, meetings or getting things that you need? 1 12/24/2023 Housing Stability Answer Date Recorded What is your housing situation today? 1 12/24/2023 Utilities Answer Date Recorded Do you have trouble paying f or utilities (for example, heat, electricity, water, phone)? 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 Not on file Not on file Not on file Obstetrics History Para Term AB IAB SAB Ectopic Multiple Livin g Live Births 2 2 0 0 0 0 0 0 Date Outcome GA Total Labor Labor/2nd/3rd Weight Sex Type Anes PTL Natalia A1 A5 Name Clin Para Para Last Filed Vital Signs Vital Sign Reading Time Taken Comments Blood Pressure 112/76 08/12/2024 2:46 PM ASSISTANT PROFESSOR OF EDUCATION Pulse 80 08/12/2024 2:46 PM ASSISTANT PROFESSOR OF EDUCATION Temperature 36.9 C (98.5 F) 12/09/2022 2:35 PM CDT Respiratory Rate 16 05/10/2024 2:58 PM CDT Oxygen Saturation 97% 03/19/2024 3:06 PM CDT Inhaled Oxygen Concentration - - Weight 81.8 kg (180 lb 6.4 oz) 08/12/2024 2:46 P M ASSISTANT PROFESSOR OF EDUCATION Height 159 cm (5' 2.6) 02/05/2024 2:40 PM CDT Body Mass Index 32.37 02/05/2024 2:40 PM CDT Plan of Treatment Upcoming Encounters Date Type Department Care Team (Late st Contact Info) Description 11/03/2024 Cardiac Device Check IG [facility] [phone] Health Maintenance Due Date Last Done Comments Colonoscopy through age 75 07/30/2022 07/30/2012, Tetanus booster 12/24/2023 12/23/2013, 02/27/2004 RSV vaccine for adults or (1 - 1-dose 75+ series) 02/17/2024 Influenza for age 65+ 05/23/2024 08/05/2023 , 08/19/2022, 05/29/2021, Additional history exists Medicare Wellness for age 65+ 11/06/2024, 02/05/2021, 08/17/2019, Additional history exists Depression screening for age 12+ 11/10/2024 11/10/2023, 11/06/2023, 05/02/2023, Additional history exists BMI (ht and wt on same day) for age 18+ 02/04/2025 02/05/2024, 11/06/2023, 08/05/2023, Additional history exists Lipids for age 45-75 08/12/2029 08/12/2024, 05/10/2024, 11/06/2023, Additional history exists Hepatitis C screening for ag e 18-79 Completed 08/30/2010 Tdap Completed 12/23/2013 DEXA/DXA scan for age 65+ Completed 10/27/2017, 09/2008 Pneumococcal series for age 50+ Completed 08/20/2019, 09/02/2017, 03/01/2016, Additional history exists Zoster (shingles) series for age 50+ Completed 04/09/2023, 12/22/2022, 03/13/2012 COVID-19 vaccine series Completed 05/29/20, 08/05/2023, 10/03/2022, Additional history exists Medical Devices Implanted Type Area Wholesale Agronomist Device Identifier Shelf Expiration Date Model / Serial / Lot Locking Distal Fibula Plate, Right Implanted:Qty: 1 on 03/29/2019 by Barron Cain DPM at [facility] Right: Ankle [employer] [id number] / / Description:From vendor tray 4 Mm Cancellous, Short Thread, Low Profile Screw, Stainless Steel Implanted:Qty: 1 on 03/29/2019 by Barron Cain DPM at [facility] Right: Ankle [employer] [id number] / / Description:From vendor tray 4 Mm Cancellous, Short Thread, Low Profile Screw, Stainless Steel Implanted:Qty: 1 on 03/29/2019 by Barron Cain DPM at [facility] Right: Ankle [employer] [id number]-50 / / Description:From vendor tray 2.7 Mm, Locking Screw, Low Profile, Stainless Steel Implanted:Qty: 2 on 03/29/2019 by Barron Cain DPM at [facility] Right: Ankle [employer] [id number]-14 / / Description:From vendor tray 2.7 Mm Locking Screw, Low Profile, Stainless Steel Implanted:Qty: 2 on 03/29/2019 by Barron Cain DPM at [facility] Right: Ankle [employer] [id number]-16 / / Description:From vendor tray 3.5 Mm Cortical Screw Implanted:Qty: 1 on 03/29/2019 by Barron Cain DPM at [facility] Right: Ankle [employer] AR-[id number] / / Description:From vendor tray 3.5mm Locking Screw, Low Profile, Stainless Steel Implanted:Qty: 2 on 03/29/2019 by Barron Cain DPM at [facility] Right: Ankle [employer] [id number]-12 / / Description:From vendor tray 3.5mm Locking Screw, Low Profile, Stainless Steel Implanted:Qty: 1 on 03/29/2019 by Barron Cain DPM at [facility] Right: Ankle [employer] [id number]-14 / / Description:From vendor tray 3.5 Mm Cortical Screw Implanted:Qty: 1 on 03/29/2019 by Barron Cain DPM at [facility] Right: Ankle [employer] AR-[id number] / / Description:From vendor tray Explanted Type Area Wholesale Agronomist Device Identifier Shelf Expiration Date Model / Serial / Lot 3.5 Mm Cortical Screw Explanted:Qty: 1 on 03/29/2019 by Barron Cain DPM at [facility] Right: Ankle [employer] [id number] / / Description:From vendor tray 3.5 Mm Cortical Screw Explanted:Qty: 1 on 03/29/2019 by Barron Cain DPM at [facility] Right: Ankle [employer] [id number] / / Description:From vendor tray Procedures Procedure Name Priority Date/Time Associated Diagnosis Comments DIRECT LDL ([facility] REFLEX ONLY) Routine 08/12/2024 3:29 PM ASSISTANT PROFESSOR OF EDUCATION COMP METABOLIC PANEL Routine 08/12/2024 3:29 PM ASSISTANT PROFESSOR OF EDUCATION Type 2 diabetes mellitus without complication, with long-term current use of insulin (HC) LIPID PANEL W REFLEX MEASURED LDL Routine 08/12/2024 3:29 PM ASSISTANT PROFESSOR OF EDUCATION Type 2 diabetes mellitus without complication, with long-term current use of insulin (HC) HEMOGLOBIN A1C STAT 08/12/2024 3:26 PM ASSISTANT PROFESSOR OF EDUCATION Type 2 diabetes mellitus without complication, with long-term current use of insulin (HC) XR DXA BONE DENSITY 2 SITES AXIAL Routine 10/27/2017 1:20 PM ASSISTANT PROFESSOR OF EDUCATION Other specified menopausal and perimenopausal disorders (CODE) Osteoporosis screening COLONOSCOPY SCREENING Routine 07/30/2012 Special screening for malignant neoplasms, colon ANTI HCV Routine 08/30/2010 4:20 PM ASSISTANT PROFESSOR OF EDUCATION Elevated LFT's from Last 3 Months or Most Recently Relevant to Health Maintenance Results * DIRECT LDL ([facility] REFLEX ONLY) (08/12/2024 3:29 PM ASSISTANT PROFESSOR OF EDUCATION) DIRECT LDL 73 <100 mg/dL [facility] Comment: Desirable range <100 mg/dL for primary prevention; <70 mg/dL for patients with CHD or diabetic patients with > or = 2 CHD risk factors. 08/12/2024 3:29 PM ASSISTANT PROFESSOR OF EDUCATION 08/12/2024 3:30 PM ASSISTANT PROFESSOR OF EDUCATION Lyn Story NP CHEMISTRY Final Result [facility] [address] [address], [place] [address] [address] [address] * (ABNORMAL) LIPID PANEL W REFLEX MEASURED LDL (08/12/2024 3:29 PM ASSISTANT PROFESSOR OF EDUCATION) CHOLESTEROL, TOTAL 174 <200 mg/dL [facility] HDL CHOLESTEROL 55 > OR = 50 mg/dL [facility] TRIGLYCERIDES 401(H) <150 mg/dL [facility] Comment: If a non-fasting specimen was collected, consider repeat triglyceride testing on a fasting specimen if clinically indicated. Fracisco et al. J. of Clin. Lipidol. 2015;9:129-169. LDL-CHOLESTEROL [facility] Comment: LDL cholesterol not calculated. Triglyceride levels greater than 400 mg/dL invalidate calculated LDL results. Reference range: <100 Desirable range <100 mg/dL for primary prevention; <70 mg/dL for patients with CHD or diabetic patients with > or = 2 CHD risk factors. LDL-C is now calculated using the Juaquin-Jan calculation, which is a validated novel method providing better accuracy than the Friedewald equation in the estimation of LDL-C. Juaquin SS et al. JINNY. 2013;310(19): 7716-1546 (http://education.Plasmonix/faq/MGU482) CHOL/HDLC RATIO 3.2 <5.0 (calc) [facility] NON HDL CHOLESTEROL 119 <130 mg/dL (calc) [facility] Comment: For patients with diabetes plus 1 major ASCVD risk factor, treating to a non-HDL-C goal of <100 mg/dL (LDL-C of <70 mg/dL) is considered a therapeutic option. Blood BLOOD SPECIMEN / Unknown 08/12/2024 3:29 PM ASSISTANT PROFESSOR OF EDUCATION 08/12/2024 3:30 PM ASSISTANT PROFESSOR OF EDUCATION Lyn Story NP CHEMISTRY Final Result [facility] [place] [id number] [place] [address], [facility] [place] [address] [place] [address] * (ABNORMAL) COMP METABOLIC PANEL (08/12/2024 3:29 PM ASSISTANT PROFESSOR OF EDUCATION) GLUCOSE 446(H) 65 - 99 mg/dL [facility] Comment: Verified by repeat analysis. Fasting reference interval For someone without known diabetes, a glucose value >125 mg/dL indicates that they may have diabetes and this should be confirmed with a follow-up test. UREA NITROGEN (BUN) 17 7 - 25 mg/dL [facility] CREATININE 1.12(H) 0.60 - 1.00 mg/dL [facility] EGFR 51(L) > OR = 60 mL/min/1.7 3m2 [facility] BUN/CREATININE RATIO 15 6 - 22 (calc) [facility] SODIUM 135 135 - 146 mmol/L [facility] POTASSIUM 4.7 3.5 - 5.3 mmol/L [facility] CHLORIDE 98 98 - 110 mmol/L [facility] CARBON DIOXIDE 30 20 - 32 mmol/L [facility] CALCIUM 9.3 8.6 - 10.4 mg/dL [facility] PROTEIN, TOTAL 6.5 6.1 - 8.1 g/dL [facility] ALBUMIN 4.1 3.6 - 5.1 g/dL [facility] GLOBULIN 2.4 1.9 - 3.7 g/dL (calc) [facility] ALBUMIN/GLOBULIN RATIO 1.7 1.0 - 2.5 (calc) [facility] BILIRUBIN, TOTAL 1.0 0.2 - 1.2 mg/dL [facility] ALKALINE PHOSPHATASE 171(H) 37 - 153 U/L [facility] AST 26 10 - 35 U/L [facility] ALT 28 6 - 29 U/L [facility] Blood BLOOD SPECIMEN / Unknown 08/12/2024 3:29 PM ASSISTANT PROFESSOR OF EDUCATION 08/12/2024 3:30 PM ASSISTANT PROFESSOR OF EDUCATION Lyn Story ENFORCEMENT MANAGER CHEMISTRY Final Result [facility] [facility] [address] [place] [address], [place] [phone] [facility] [place] [address] [place] [address] * (ABNORMAL) STAT Hemoglobin A1C (08/12/2024 3:26 PM ASSISTANT PROFESSOR OF EDUCATION) [facility] HEMOGLOBIN A1C SCREENING 11.5(H) <=6.4 % 08/12/2024 3:53 PM ASSISTANT PROFESSOR OF EDUCATION [facility] Blood BLOOD SPECIMEN / Unknown [facility] / Unknown 08/12/2024 3:26 PM ASSISTANT PROFESSOR OF EDUCATION 08/12/2024 3:26 PM ASSISTANT PROFESSOR OF EDUCATION Narrative [facility] - 08/12/2024 3:53 PM ASSISTANT PROFESSOR OF EDUCATION (<5.7%) Normal (5.7% to 6.4%) Indicates prediabetes (>=6.5%) Confirms diabetes Falsely low levels may be seen with: Recent Transfusion, Recent Significant Blood Loss, Hemolytic Diseases, or Falsely elevated levels may be seen with: Untreated Anemias, Splenectomy Lyn Story ENFORCEMENT MANAGER CHEMISTRY Final Result [facility] [address] [place] [id number] * XR DXA BONE DENSITY 2 SITES AXIAL (10/27/2017 1:20 PM ASSISTANT PROFESSOR OF EDUCATION) Anatomical Region Laterality Modality Spine, HIPS, HIPL, HIPR Bone Den sitometry Narrative 10/28/2017 2:29 PM ASSISTANT PROFESSOR OF EDUCATION Please see scanned document for results of this study. us Axel Tidwell DO DEXA Final Res ult * COLONOSCOPY SCREENING (07/30/2012) us Sarbjit Lockett MD GI PROCEDURE ORD Final Re sult * ANTI HCV (08/30/2010 4:20 PM ASSISTANT PROFESSOR OF EDUCATION) ANTI HCV Non-reacti ve [facility] Blood specimen (specimen) BLOOD SPECIMEN / Unknown 08/30/2010 4:20 PM ASSISTANT PROFESSOR OF EDUCATION 08/30/2010 4:02 PM ASSISTANT PROFESSOR OF EDUCATION us Axel Tidwell DO SEND OUTS Final Res ult [facility] [place]NAL ZIP [id number] [address] from Last 3 Months or Most Recently Relevant to Health Maintenance Insurance [employer] [place] Member Subscriber Plan / Payer (Ef fective 2014-Present) Name:Fransisca Zepeda Relation to Subscriber:Self Name:Frnasisca Zepeda Payer ID:[id number] (NAIC) Group ID:[id number] Type:Not on file Address: [address] [place] [address] MEDICARE PART A HB ONLY [employer] [place] BLUE HB ONLY MEDICARE PART B HB ONLY MEDICARE PART A HB ONLY MEDICARE PART A HB ONLY MEDICARE PART B HB ONLY [employer] [place] BLUE HB ONLY [employer] [place] BLUE MR PB ONLY [employer] [place] [place] BLUE HB ONLY Advance Directives * Full Code (Latest Code Status on File) Date Activated Date Inactivated Comments 04/12/2019 1:39 AM 04/13/2019 6:31 PM * Full Code Date Activated Date Inactivated Comments 03/29/2019 7:56 AM 03/31/2019 3:21 PM Question Answer Comments Code Status Discussion: Discussed * Full Code Date Activated Date Inactivated Comments 03/29/2019 7:55 AM 03/29/2019 7:56 AM Question Answer Comments Code Status Discussion: Discussed * Full Code Date Activated Date Inactivated Comments 05/28/2014 3:45 PM 06/02/2014 10:56 AM Care Teams Early Breastfeeding Care Specialist Relationship Specialty Start Date End Date Lyn Story NP [address] [place] [address] [place] [address] PCP - General Nurse Practitioner - Family 02/05/24 Dolores Iyer, RN [address] [place] [address] Label Cutter 12/18/21
[2024-10-16 11:14] VITALS: BP 143/93; PULSE 89; RESP 18; TEMP 38.4; O2SAT 95; BMI 23.3
--- NOTE | 2024-10-16 11:27 | ED_ITS ---
HPI - General Adult General Date Seen: 10/16/24 Chief complaint: Cough Stated complaint: Covid Time Seen by Provider: 10/16/24 11:09 History of Present Illness HPI narrative: 74-year-old female presenting to the ER today with symptoms of cough and a positive coronavirus test. She has a past medical history of type 2 diabetes, hyperlipidemia, hypertension, bradycardia with pacemaker implantation, degenerative disc disease, prior history of endometrial cancer. She has symptoms of cough which began 3 days ago on Friday evening. She had a positive at-home COVID test on evening and a more strongly positive test this morning. She came to the ER today because wants to start on Paxlovid and knows that she needs to started today and cannot wait until Friday.. Symptoms have included a cough that sometimes is productive of yellow-green sputum. She is not having any chest pain or shortness of breath. She has also had fatigue, body aches, headache. She has had mild nausea but no vomiting. She has been trying to drink plenty of fluids and stay hydrated. No diarrhea. She has no history of asthma or lung disease. She does have history of hypertension, diabetes and other risk factors. She has had COVID once in the past and did not require hospitalization. According to her chart in [facility] as version of [employer], through [facility] care link medication list include... Acetaminophen Amlodipine Aspirin Atorvastatin Vitamin-D Diclofenac gel Lexapro Gabapentin Lantus insulin Levothyroxine Semaglutide Sodium bicarbonate tablets Related Data Home Medications ?Medication ?Instructions ?Recorded ?Confirmed amlodipine 5 mg tablet 5 mg PO DAILY 09/17/22 10/16/24 dulaglutide 3 mg/0.5 mL 3 mg subcut Q7D 09/17/22 11/29/22 [facility] escitalopram oxalate 10 mg tablet 10 mg PO DAILY 09/17/22 10/16/24 flash glucose sensor (FreeStyle #1 ea 09/17/22 11/29/22 Sofia 14 Day Sensor kit) gabapentin 100 mg capsule 100 mg PO HS 09/17/22 10/16/24 pen needle, diabetic 32 gauge x #50 ea 09/17/22 11/29/2232 (BD Ultra-Fine Stormy Pen Needle) sodium bicarbonate 650 mg tablet 650 mg PO BID 09/17/22 10/16/24 acetaminophen 500 mg tablet 1,000 mg PO TID 09/19/22 10/16/24 aspirin 81 mg tablet,delayed 81 mg PO DAILY 09/19/22 10/16/24 release cholecalciferol (vitamin D3) 25 1,000 unit PO DAILY 09/19/22 11/29/22 mcg (1,000 unit) capsule diclofenac sodium 1 % topical gel 2 g topical QID 10/17/22 10/16/24 atorvastatin 10 mg tablet mg 10/16/24 insulin glargine 100 unit/mL (3 unit subcut 10/16/24 mL) subcutaneous pen (Lantus Solostar U-100 Insulin) levothyroxine 50 mcg tablet mcg DAILY 10/16/24 semaglutide 0.25 mg or 0.5 mg (2 mg subcut 10/16/24 mg/3 mL) subcutaneous pen injector (Ozempic) Previous Rx's ?Medication ?Instructions ?Recorded oxycodone 5 mg tablet 2.5 - 5 mg (0.5 - 1 x 5 mg) PO 10/24/22 Q4-6H PRN pain #42 tabs sennosides 8.6 mg-docusate sodium 1 - 4 tab-cap (1 - 4 x 8.6-50 mg) 10/24/22 50 mg tablet (Senna-S) PO BID PRN constipation #60 tabs oxycodone 5 mg tablet 5 mg PO Q4-8H PRN pain #25 tabs 11/05/22 amoxicillin 500 mg capsule 2,000 mg (4 x 500 mg) PO ONCE 01/14/23 pre-med #4 caps nirmatrelvir 300 mg (150 mg See Rx Instructions PO .COMPLEX 10/16/24 x2)-ritonavir 100 mg tablet,dose #30 ea pack (Paxlovid) Allergies Allergy/AdvReac Type Severity Reaction Status Date / Time pravastatin Allergy Unknown myalgia Verified 12/03/22 14:07 exenatide Allergy Diarrhea Verified 12/03/22 14:07 NSAIDS (Non-Steroidal Allergy Verified 12/03/22 14:07 Anti-Inflamma pioglitazone Allergy Verified 12/03/22 14:07 rosuvastatin AdvReac myalgia Verified 12/03/22 14:07 [facility] Medical History (Updated 10/16/24 @ 11:51 by Rocco Rainey MD) History of vaginal delivery Endometrioid carcinoma DDD (degenerative disc disease), lumbar ?M51.36 - Other intervertebral disc degeneration, lumbar region (ICD-10) Foraminal stenosis of lumbar region ?M48.061 - Spinal stenosis, lumbar region without neurogenic claudication (ICD-10) Fatty liver ?K76.0 - Fatty (change of) liver, not elsewhere classified (ICD-10) Elevated liver enzymes ?R74.8 - Abnormal levels of other serum enzymes (ICD-10) Otosclerosis ?H80.90 - Unspecified otosclerosis, unspecified ear (ICD-10) Mixed hearing loss, bilateral ?H90.6 - Mixed conductive and sensorineural hearing loss, bilateral (ICD-10) Vitamin D deficiency ?E55.9 - Vitamin D deficiency, unspecified (ICD-10) Chronic kidney disease, stage 3 ?N18.30 - Chronic kidney disease, stage 3 unspecified (ICD-10) Hyperlipidemia ?E78.5 - Hyperlipidemia, unspecified (ICD-10) History of nephrolithiasis ?Z87.442 - Personal history of urinary calculi (ICD-10) Diabetes ?E11.9 - Type 2 diabetes mellitus without complications (ICD-10) Osteoarthritis of left hip ?M16.12 - Unilateral primary osteoarthritis, left hip (ICD-10) Pre-syncope ?R55 - Syncope and collapse (ICD-10) Hypoglycemia ?E16.2 - Hypoglycemia, unspecified (ICD-10) History of migraine headaches ?Z86.69 - Personal history of other diseases of the nervous system and sense organs (ICD-10) Episode of altered cognition ?R41.89 - Other symptoms and signs involving cognitive functions and awareness (ICD-10) Diabetes mellitus type 2 in obese ?E11.69 - Type 2 diabetes mellitus with other specified complication (ICD-10) ?E66.9 - Obesity, unspecified (ICD-10) Complete atrioventricular block ?I44.2 - Atrioventricular block, complete (ICD-10) Bradycardia ?R00.1 - Bradycardia, unspecified (ICD-10) Endometriosis ?N80.9 - Endometriosis, unspecified (ICD-10) Migraine headache ?G43.909 - Migraine, unspecified, not intractable, without status migrainosus (ICD-10) Depression ?F32.A - Depression, unspecified (ICD-10) Incontinence of urine ?R32 - Unspecified urinary incontinence (ICD-10) Elevated cholesterol ?E78.00 - Pure hypercholesterolemia, unspecified (ICD-10) Hypertension ?I10 - Essential (primary) hypertension (ICD-10) Sleep apnea ?G47.30 - Sleep apnea, unspecified (ICD-10) Degenerative joint disease (DJD) of lumbar spine ?M47.816 - Spondylosis without myelopathy or radiculopathy, lumbar region (ICD-10) Tendinitis involving right hip abductors ?M76.891 - Other specified enthesopathies of right lower limb, excluding foot (ICD-10) Greater trochanteric bursitis of right hip ?M70.61 - Trochanteric bursitis, right hip (ICD-10) Surgical History (Updated 11/29/22 @ 11:34 by Lubna Brown) History of ear surgery ?Z98.890 - Other specified postprocedural states (ICD-10) Status post placement of cardiac pacemaker ?Z95.0 - Presence of cardiac pacemaker (ICD-10) Status post open reduction with internal fixation (ORIF) of fracture of ankle (~2016) ?Z98.890 - Other specified postprocedural states (ICD-10) ?Z87.81 - Personal history of (healed) traumatic fracture (ICD-10) History of arthroscopy of right shoulder (06/11/07) ?Z98.890 - Other specified postprocedural states (ICD-10) History of carpal tunnel surgery of right wrist (04/24/16) ?Z98.890 - Other specified postprocedural states (ICD-10) History of carpal tunnel surgery of left wrist (05/29/16) ?Z98.890 - Other specified postprocedural states (ICD-10) H/O: hysterectomy ?Z90.710 - Acquired absence of both cervix and uterus (ICD-10) History of lumbar laminectomy ?Z98.890 - Other specified postprocedural states (ICD-10) History of total right hip arthroplasty (08/20/07) ?Z96.641 - Presence of right artificial hip joint (ICD-10) Family History , RN) Mother CHF (congestive heart failure) High blood pressure Heart disease Brother CHF (congestive heart failure) High blood pressure Diabetes Father Alzheimers disease Psychiatric illness Social History (Reviewed 12/03/22 @ 14:09 by Anna Cochran ~ [facility], [facility]) Smoking Status: Never smoker Do you use any of these nicotine containing products: None Second hand tobacco smoke exposure: No How often do you have a drink containing alcohol: 2-4 times a month Alcohol type: beer and hard liquor How many standard drinks containing alcohol do you have on a typical day: 1 or 2 How often do you have six or more drinks on one occasion: Never AUDIT-C Alcohol total score: 2 Non-prescribed substance use: denies use Caffeine: Yes (coffee, 1-2 cups/day) Exam Narrative: Exam Narrative: Constitutional: Appears well-developed and well-nourished. Alert. Conversant. Non toxic. Very polite. HENT: Head: Atraumatic. Nose: Nose normal. Mouth/Throat: Oral mucosa is clear and moist. no trismus. Wearing N95 mask. Eyes: Conjunctivae normal. EOM normal. Pupils equal, round, and reactive to light. No scleral icterus. Neck: Normal range of motion. Neck supple. No tracheal deviation present. Cardiovascular: Normal rate, regular rhythm. No gallop. No friction rub. No murmur heard. Symmetric radial artery pulses Pulmonary/Chest: Effort normal. No stridor. No respiratory distress. No wheezes. No rales. No rhonchi . No tenderness. Abdominal: Soft.No distension. No mass. No tenderness. No rebound. No guarding. Musculoskeletal: RUE: Normal range of motion. No tenderness. No deformity LUE: Normal range of motion. No tenderness. No deformity RLE: Normal range of motion. No edema. No tenderness. No deformity LLE: Normal range of motion. No edema. No tenderness. No deformity Neurological: Alert and oriented to person, place, and time. Normal strength. CN II-VII intact. No sensory deficit. GCS eye subscore is 4. GCS verbal subscore is 5. GCS motor subscore is 6. Normal coordination Skin: Skin is warm and dry. No rash noted. No pallor. Normal capillary refill. Psychiatric: Normal mood. Normal affect. Const: Vital Signs, click to edit/add: Vital Signs - 24 hr 10/16/24 11:14 Temperature 101.1 F H Pulse Rate [Pulse Oximeter] 89 Respiratory Rate 18 Blood Pressure [Ri ght Upper Arm] 143/93 H Pulse Oximetry 95 Oxygen Delivery Me thod Room Air Course Vital Signs Vital signs: Initial Vital Signs Temperature 101.1 F H 10/16/24 11:14 Temperature Source Temporal Artery Scan 10/16/24 11:14 Pulse Rate 89 10/16/24 11:14 Respiratory Rate 18 10/16/24 11:14 Blood Pressure 143/93 H 10/16/24 11:14 Blood Pressure Mean 109 H 10/16/24 11:14 Pulse Oximetry 95 10/16/24 11:14 Oxygen Delivery Method Room Air 10/16/24 11:14 Vital Signs Temperature 101.1 F H 10/16/24 11:14 Pulse Rate 89 10/16/24 11:14 Respiratory Rate 18 10/16/24 11:14 Blood Pressure 143/93 H 10/16/24 11:14 Pulse Oximetry 95 10/16/24 11:14 Oxygen Delivery Method Room Air 10/16/24 11:14 Temperature 101.1 F H 10/16/24 11:14 Pulse Rate 89 10/16/24 11:14 Respiratory Rate 18 10/16/24 11:14 Blood Pressure 143/93 H 10/16/24 11:14 Pulse Oximetry 95 10/16/24 11:14 Oxygen Delivery Method Room Air 10/16/24 11:14 Medical Decision Making MDM Narrative Medical decision making narrative: This patient presents for evaluation of cough, fatigue, body aches, headache with 2 positive at-home coronavirus tests. Symptoms certainly could be consistent with COVID There is no signs at this point of serious bacterial infection such as OM, RPA, epiglottitis, pneumonia, sinusitis, meningitis, bacteremia, serious bacterial infection. Given clear lungs, fever curve, no hypoxia and no respiratory distress I do not feel a CXR is indicated at this point as the probability of bacterial pneumonia is very unlikely. There are no signify gastrointestinal symptoms at this point and no signs of dehydration. She is within the 5 day window for Paxlovid and does meet criteria so given age and medical comorbidities. In review of her medication list there are potential interactions between Paxlovid and amlodipine and or statin. She will hold those 2 medications for 5 days while on Paxil that and then resume them. Other meds on her list have no interaction. Reviewed medication interactions and side effects of Paxlovid with the patient verbally and written on her discharge instructions. Discussed precautions for return to the ER including worsening cough, trouble breathing, hypoxia, chest pain, worsening weakness, uncontrolled vomiting or dehydration,. Close followup with primary care physician is indicated. Lab Data Labs: Lab Results 10/16/24 Range/Units 11:21 Creatinine 0.9 (0.5-1.5) mg/dL Estimated Creat Clear 43.74 Estimated GFR 67 ml/min Discharge Plan Discharge Clinical Impression: COVID-19 Patient Disposition: Home, Self-Care Condition: Stable Instructions: COVID-19 (Coronavirus Disease 2019) (ED) Additional Instructions: As we discussed, start on Paxlovid today. While you are on Paxlovid do not take your blood pressure medication amlodipine or your cholesterol medication atorvastatin. After you finish Paxlovid you can resume taking those medications. Try to rest and stay home. Drink plenty of fluids and stay hydrated. Try to eat healthy diet. If you have worsening trouble breathing, chest pain, weakness, dehydration, or any concerns, come back to the ER right away to be rechecked. Prescriptions: New Paxlovid 300 mg (150 mg x 2)-100 mg tablets,dose pack See Rx Instructions .ROUTE .COMPLEX Qty: 30 0RF Rx Instructions: take TWO 150 mg tablets of nirmatrelvir with ONE 100 mg tablet of ritonavir twice daily for 5 days No Action Trulicity 3 mg/0.5 mL pen injector 3 mg subcut Q7D escitalopram oxalate 10 mg tablet 10 mg PO DAILY amlodipine 5 mg tablet 5 mg PO DAILY (DME) pen needle, diabetic [BD Ultra-Fine Stormy Pen Needle] 32 gauge x 5/32 needle See Rx Instructions .ROUTE .MEDSUPPLY Qty: 50 Rx Instructions: As directed sodium bicarbonate 650 mg tablet 650 mg PO BID gabapentin 100 mg capsule 100 mg PO HS (DME) FreeStyle Sofia 14 Day Sensor Kit See Rx Instructions .ROUTE .MEDSUPPLY Qty: 1 Patient Comments: USE 1 SENSOR TO MONITOR BLOOD GLUCOSE FOR 14 DAYS, AFTER 14 [address] WITH NEW SENSOR Rx Instructions: As directed cholecalciferol (vitamin D3) 25 mcg (1,000 unit) capsule 1,000 unit PO DAILY acetaminophen 500 mg tablet 1,000 mg PO TID Rx Instructions: NO MORE THAN 4000 MG/DAY aspirin 81 mg tablet,delayed release (DR/EC) 81 mg PO DAILY diclofenac sodium 1 % gel 2 g topical QID sennosides-docusate sodium [Senna-S] 8.6-50 mg tablet 1 - 4 tab-cap PO BID PRN (Reason: constipation) Qty: 60 0RF Rx Instructions: Hold medication if experiencing loose stools. oxycodone 5 mg tablet 2.5 - 5 mg PO Q4-6H MDD 6 PRN (Reason: pain) Qty: 42 0RF Rx Instructions: Take as needed for postop pain: 2.5mg mild pain, 5mg moderate-severe pain; wean as tolerated. atorvastatin 10 mg tablet levothyroxine 50 mcg tablet DAILY insulin glargine [Lantus Solostar U-100 Insulin] 100 unit/mL (3 mL) insulin pen subcut Ozempic 0.25 mg or 0.5 mg (2 mg/3 mL) pen injector SUBCUT Patient Comments: [NO ORIGINAL SIG] oxycodone 5 mg tablet 5 mg PO Q4-8H PRN (Reason: pain) Qty: 25 0RF amoxicillin 500 mg capsule 2,000 mg PO ONCE Qty: 4 3RF Rx Instructions: Take 4 capsules (2000mg) 1 hour prior to dental appointment. Follow Up/Referrals: Axel Tidwell DO [Primary Care Provider] - Stand Alone Forms: MyHealth Info Instructions
[2024-10-16 11:52] LABS: Creatinine* 0.9 mg/dL (0.5-1.5); Est. Creatinine Clearance* 43.74; Estimated Glomerular Filt Rate 67 ml/min
--- OUTSIDE RECORDS SUMMARY | 2024-10-16 12:08 | XMS_ITS | Clinical Summary ---
Author Organization [employer] Address [place], [place] [address] Care Team Providers Care Disposition Clerk Name Role Phone Dolores Iyer RN Unavailable Lyn Story NP Primary Care Provider Allergies Active Allergy Reactions Criticality Noted Date [...] 11/06/19 Active diclofenac topical (VOLTAREN) 1 % gelIndications:Energy Rater little right-sided low back pain with right-sided [...] at bedtime. 90 Capsule 11/06/19 Active Insulin [place], Disposable, (Stormy Pen Needle) 32 gauge x [...] be used to read blood sugars per hospice social worker's directions. 1 Each 04/14/20 24 Active levothyroxine [...] infection, acute 05/28/201408/2015 Medical Home 12/04/2011 03/06/2012 [facility] Contract 04/23/2010 012 Overview (04/23/2010): This patient, PCP and Care Guide have signed a letter agreeing on a set of goals for diabetes, hypertension and/or CHF. Please look for Tyesha Care Goal Contract in Chart Review/ Letters and support this effort. Please direct questions to Care Guide Atiya EngelSocorro Mohannoemí Phone number [phone]. 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 Not on file Not on file Not [...] Comments Blood Pressure 112/76 08/12/2024 2:46 PM TOWBOAT CAPTAIN Pulse 80 08/12/2024 2:46 PM TOWBOAT CAPTAIN Temperature 36.9 C (98.5 F) 12/09/2022 2:35 PM CDT Respiratory Rate 16 05/10/2024 2:58 PM CDT Oxygen Saturation 97% 03/19/2024 3:06 PM CDT Inhaled Oxygen Concentration - - Weight 81.8 kg (180 lb 6.4 oz) 08/12/2024 2:46 P M TOWBOAT CAPTAIN Height 159 cm (5' 2.6) 02/05/2024 2:40 PM CDT Body Mass Index 32.37 02/05/2024 2:40 PM CDT Plan of Treatment Upcoming Encounters Date Type Department Care Team (Late st Contact Info) Description 11/03/2024 Cardiac Device Check DC Devices [facility] [phone] Health Maintenance Due Date Last Done Comments [...] history exists Medical Devices Implanted Type Area Television Station Manager Device Identifier Shelf Expiration Date Model / Serial / Lot Locking Distal Fibula Plate, Right Implanted:Qty: 1 on 03/29/2019 by Barron Cain DPM at [facility] Right: Ankle [employer] [id number] / / Description:From vendor tray 4 Mm Cancellous, Short Thread, Low Profile Screw, Stainless Steel Implanted:Qty: 1 on 03/29/2019 by Barron Cain DPM at [facility] Right: Ankle [employer] [id number]-46 / / Description:From vendor tray 4 Mm Cancellous, Short Thread, Low Profile Screw, Stainless Steel Implanted:Qty: 1 on 03/29/2019 by Barron Cain DPM at [facility] Right: Ankle [employer] [id number]-50 / / Description:From vendor tray 2.7 Mm, Locking Screw, Low Profile, Stainless Steel Implanted:Qty: 2 on 03/29/2019 by Barron Cain DPM at [facility] Right: Ankle [employer] [id number]-14 / / Description:From vendor tray 2.7 Mm Locking Screw, Low Profile, Stainless Steel Implanted:Qty: 2 on 03/29/2019 by Barron Cain DPM at [facility] Right: Ankle [employer] [id number]-16 / / Description:From vendor tray 3.5 Mm Cortical Screw Implanted:Qty: 1 on 03/29/2019 by Barron Cain DPM at [facility] Right: Ankle [employer] AR-[id number] / / Description:From vendor tray 3.5mm Locking Screw, Low Profile, Stainless Steel Implanted:Qty: 2 on 03/29/2019 by Barron Cain DPM at [facility] Right: Ankle [employer] AR-[id number]-12 / / Description:From vendor tray 3.5mm Locking Screw, Low Profile, Stainless Steel Implanted:Qty: 1 on 03/29/2019 by Barron Cain DPM at [facility] Right: Ankle [employer] [id number]-14 / / Description:From vendor tray 3.5 Mm Cortical Screw Implanted:Qty: 1 on 03/29/2019 by Barron Cain DPM at [facility] Right: Ankle [employer] AR-[id number] / / Description:From vendor tray Explanted Type Area Television Station Manager Device Identifier Shelf Expiration Date Model / Serial / Lot 3.5 Mm Cortical Screw Explanted:Qty: 1 on 03/29/2019 by Barron Cain DPM at [facility] Right: Ankle [employer] [id number] / / Description:From vendor tray 3.5 Mm Cortical Screw Explanted:Qty: 1 on 03/29/2019 by Barron Cian DPM at [facility] Right: Ankle [employer] [id number] / / Description:From vendor tray Procedures Procedure Name Priority Date/Time Associated Diagnosis Comments DIRECT LDL ([facility] REFLEX ONLY) Routine 08/12/2024 3:29 PM TOWBOAT CAPTAIN COMP METABOLIC PANEL Routine 08/12/2024 3:29 PM TOWBOAT CAPTAIN Type 2 diabetes mellitus without complication, with long-term current use of insulin (HC) LIPID PANEL W REFLEX MEASURED LDL Routine 08/12/2024 3:29 PM TOWBOAT CAPTAIN Type 2 diabetes mellitus without complication, with long-term current use of insulin (HC) HEMOGLOBIN A1C STAT 08/12/2024 3:26 PM TOWBOAT CAPTAIN Type 2 diabetes mellitus without complication, with long-term current use of insulin (HC) XR DXA BONE DENSITY 2 SITES AXIAL Routine 10/27/2017 1:20 PM TOWBOAT CAPTAIN Other specified menopausal and perimenopausal disorders (CODE) Osteoporosis screening COLONOSCOPY SCREENING Routine 07/30/2012 Special screening for malignant neoplasms, colon ANTI HCV Routine 08/30/2010 4:20 PM TOWBOAT CAPTAIN Elevated LFT's from Last 3 Months or Most Recently Relevant to Health Maintenance Results * DIRECT LDL ([facility] REFLEX ONLY) (08/12/2024 3:29 PM TOWBOAT CAPTAIN) DIRECT LDL 73 <100 mg/dL [facility] Comment: Desirable range <100 mg/dL for primary prevention; <70 mg/dL for patients with CHD or diabetic patients with > or = 2 CHD risk factors. 08/12/2024 3:29 PM TOWBOAT CAPTAIN 08/12/2024 3:30 PM TOWBOAT CAPTAIN Lyn Story NP CHEMISTRY Final Result [facility] [address] [address], [facility] [address] [address] * (ABNORMAL) LIPID PANEL W REFLEX MEASURED LDL (08/12/2024 3:29 PM TOWBOAT CAPTAIN) CHOLESTEROL, TOTAL 174 <200 mg/dL [facility] [...] LDL-C. Juaquin SS et al. JINNY. 2013;310(19): 8592-7253 (http://education.[employer]/faq/IIR950) CHOL/HDLC RATIO 3.2 <5.0 (calc) [facility] NON HDL CHOLESTEROL 119 <130 mg/dL (calc) [facility] Comment: For patients with diabetes plus 1 major ASCVD risk factor, treating to a non-HDL-C goal of <100 mg/dL (LDL-C of <70 mg/dL) is considered a therapeutic option. Blood BLOOD SPECIMEN / Unknown 08/12/2024 3:29 PM TOWBOAT CAPTAIN 08/12/2024 3:30 PM TOWBOAT CAPTAIN Lyn Story NP CHEMISTRY Final Result [facility] [id number] [place] [address], [facility] [address] [place] [address] * (ABNORMAL) COMP METABOLIC PANEL (08/12/2024 3:29 PM TOWBOAT CAPTAIN) GLUCOSE 446(H) 65 - 99 mg/dL [facility] Comment: Verified by repeat analysis. [...] 51(L) > OR = 60 mL/min/1.7 3m2 [facility] BUN/CREATININE RATIO 15 6 [...] 37 - 153 U/L [facility] AST 26 10 - 35 U/L [facility] ALT 28 6 - 29 U/L [facility] Blood BLOOD SPECIMEN / Unknown 08/12/2024 3:29 PM TOWBOAT CAPTAIN 08/12/2024 3:30 PM TOWBOAT CAPTAIN Lyn Story [employer]CH[employer]ICAL [employer] CHEMISTRY Final Result [facility] [address] [place] [address], [place] [phone] [facility] [address] [place] [address] * (ABNORMAL) STAT Hemoglobin A1C (08/12/2024 3:26 PM TOWBOAT CAPTAIN) [facility] HEMOGLOBIN A1C SCREENING 11.5(H) <=6.4 % 08/12/2024 3:53 PM TOWBOAT CAPTAIN [facility] Blood BLOOD SPECIMEN / Unknown [facility] / Unknown 08/12/2024 3:26 PM TOWBOAT CAPTAIN 08/12/2024 3:26 PM TOWBOAT CAPTAIN Narrative [facility] - 08/12/2024 3:53 PM TOWBOAT CAPTAIN (<5.7%) Normal (5.7% to 6.4%) Indicates prediabetes (>=6.5%) Confirms diabetes Falsely low levels may be seen with: Recent Transfusion, Recent Significant Blood Loss, Hemolytic Diseases, or Falsely elevated levels may be seen with: Untreated Anemias, Splenectomy Lyn Story TECHNICAL ASSOC CHEMISTRY Final Result [facility] [address] [place] [id number] * XR DXA BONE DENSITY 2 SITES AXIAL (10/27/2017 1:20 PM TOWBOAT CAPTAIN) Anatomical Region Laterality Modality Spine, HIPS, HIPL, HIPR Bone Den sitometry Narrative 10/28/2017 2:29 PM TOWBOAT CAPTAIN Please see scanned document for results of this study. us Axel Tidwell DO DEXA Final Res ult * COLONOSCOPY SCREENING (07/30/2012) us Sarbjit Lockett MD GI PROCEDURE ORD Final Re sult * ANTI HCV (08/30/2010 4:20 PM TOWBOAT CAPTAIN) ANTI HCV Non-reacti ve [facility] Blood specimen (specimen) BLOOD SPECIMEN / Unknown 08/30/2010 4:20 PM TOWBOAT CAPTAIN 08/30/2010 4:02 PM TOWBOAT CAPTAIN us Axel Tidwell DO SEND OUTS Final Res ult [facility] INTERNAL ZIP [phone] [address] from Last 3 Months or Most Recently Relevant to Health Maintenance Insurance MR [employer] MEDICARE PART A HB ONLY [employer] BL[employer] HB ONLY MEDICARE PART B HB ONLY MEDICARE PART A HB ONLY MEDICARE PART A HB ONLY MEDICARE PART B HB ONLY [employer] BLUE HB ONLY [employer] BLUE MR PB ONLY [employer] BLUE HB ONLY Advance Directives * Full [...] 3:45 PM 06/02/2014 10:56 AM Care Teams Disposition Clerk Relationship Specialty Start Date End Date Lyn Story NP [address] [place] [address] [place] [address] PCP - General Nurse Practitioner - Family 02/05/24 Dolores Iyer, RN [address] [place] [id number] Adult Education Manager 12/18/21
[2024-10-16 12:21] VITALS: PULSE 96; RESP 20
== END 2024-10-16 12:22 | disposition home or self-care (01) ==
PROVIDERS: Emergency Provider Emergency Medicine; PCP Family Medicine
DX: U07.1 COVID-19 (principal)
CPT/HCPCS: 36415; 82565; 99283

== ENCOUNTER 2025-08-21 09:51 | Emergency (ER) | payer MEDICARE, BC, SELFPAY ==
--- OUTSIDE RECORDS SUMMARY | 2025-08-21 09:53 | XMS_ITS | Clinical Summary ---
Author Organization [employer] [facility] Address [address] [place] [id number] Care Team Providers Care Featheredge Machine Operator Name Role Phone Dolores Iyer RN Unavailable [phone] Lyn Story NP Primary Care Provider Allergies Active Allergy Reactions Criticality Noted Date Comments Pioglitazone Myalgia 06/27/2013 Urinary frequency Azithromycin Muscle Weakness 08/12/2024 Rosuvastatin Myalgia 03/10/2019 Exenatide Diarrhea,Vomiting 03/13/2012 Possible reaction Nsaids (Non-Steroidal Anti-Inflammatory Drug) *Unknown 04/12/2019 Pravastatin Myalgia 03/02/2015 Medications cholecalciferol (VITAMIN D) 1,000 unit tablet Take 1 tablet by mouth once daily. 0 015 Active acetaminophen (TYLENOL EXTRA STRGTH) 500 mg tablet Take 1,000 mg by mouth 3 times daily. Max acetaminophen dose: 4000mg in 24 hrs. Active aspirin chewable 81 mg chewable tablet Take 1 tablet by mouth once daily with a meal. 0 019 Active blood-glucose meterIndications:U ncontrolled type 2 diabetes mellitus with hyperglycemia (HC) Dispense meter, test strips, lancets covered by pt ins. E11.65 NIDDM type II, uncontrolled - Test 4 times/day. Reason: High A1C 1 Each 023 Active lancetsIndications :Uncontrolled type 2 diabetes mellitus with hyperglycemia (HC) As directed. Test 4 times per day. 100 Each 12 023 Active blood sugar diagnostic (Blood Glucose Test) stripIndications:U ncontrolled type 2 diabetes mellitus with hyperglycemia (HC) Test 4 times per day. 100 Each 12 024 Active diclofenac topical (VOLTAREN) 1 % gelIndications:Chr onic right-sided low back pain with right-sided sciatica Apply 2 g topically to affected area(s) four times daily. Active Insulin Nickerson, Disposable, (Stormy Pen Needle) 32 gauge x 5/32Indications:T ype 2 diabetes mellitus with microalbuminuria, without long-term current use of insulin (HC) As directed. To use with insulin once daily 50 Each 3 024 Active FreeStyle Sofia 2 ReaderIndications: Type 2 diabetes mellitus with microalbuminuria, without long-term current use of insulin (HC) To be used to read blood sugars per chairman president and chief executive officer's directions. 1 Each 024 Active sodium bicarbonate 650 mg tabletIndications: Type 2 diabetes mellitus with microalbuminuria, without long-term current use of insulin (HC),History of nephrolithiasis Take 1 Tablet (650 mg) by mouth two times daily. 360 Tablet 5 025 Active FreeStyle Sofia 2 SensorIndications: Type 2 diabetes mellitus with microalbuminuria, without long-term current use of insulin (HC) WEAR ONE SENSOR FOR 14 DAYS THEN CHANGE AND REPLACE WITH NEW SENSOR EVERY 14 DAYS 6 Each 3 025 Active atorvastatin 10 mg tabletIndications: Mixed hyperlipidemia Take 1 tablet by mouth twice weekly for a couple weeks then every other day for cholesterol. 45 Tablet 1 025 Active Lantus Solostar U-100 Insulin 100 unit/mL (3 mL) penIndications:Unc ontrolled type 2 diabetes mellitus with hyperglycemia (HC) INJECT 26 UNITS UNDER THE SKIN BEFORE BEDTIME. 60 mL 025 Active levothyroxine (SYNTHROID) 50 mcg tabletIndications: Hypothyroidism (acquired) TAKE ONE TABLET (50 MCG) BY MOUTH EVERY MORNING BEFORE BREAKFAST 90 Tablet 2 025 Active amLODIPine (NORVASC) 5 mg tabletIndications: Hypertension, unspecified type TAKE ONE TABLET (5 MG) BY MOUTH ONCE EVERY DAY .HOLD IF SYSTOLIC BLOOD PRESSURE LESS THAN 100. 90 Tablet 2 025 Active escitalopram oxalate (LEXAPRO) 10 mg tabletIndications: Adjustment disorder with depressed mood,Bereavement reaction TAKE ONE TABLET (10 MG) BY MOUTH ONCE DAILY IN THE MORNING. 90 Tablet 1 025 Active semaglutide (0.25 mg or 0.5 mg/dose) (Ozempic) 2 mg/3 mL subcutaneous penIndications:Typ e 2 diabetes mellitus without complication, with long-term current use of insulin (HC) INJECT 0.5 MG UNDER THE SKIN ONCE WEEKLY 3 mL 025 Active semaglutide (Ozempic) 2 mg/3 mL subcutaneous penIndications:Typ e 2 diabetes mellitus without complication, with long-term current use of insulin (HC) Inject 0.5 mg subcutaneous once weekly. 3 mL 3 025 2024 Discontinued Active Problems Problem Noted Date Diagnosed Date Potential for cognitive impairment 08/06/2023 S/P ORIF (open reduction internal fixation) frac ture 03/29/2019 Foraminal stenosis of lumbar region 04/28/2015 DDD (degenerative disc disease), lumbar 04/28/20 15 Fatty liver 05/31/2014 Elevated liver enzymes 05/28/2014 [...] block) Type 2 diabetes mellitus without complication Overview (07/01/2025): Diagnosis Code replaced due to regulatory update HTN (hypertension) Resolved Problems Problem Noted Date Diagnosed Date Resolved Date Type 2 diabetes mellitus wit h microalbuminuria, without long-term current use of insulin 10/03/2022 10/03/2022 Malignant neoplasm of endometrium 05/29/2021 10/03/2022 Ankle fracture 04/12/2019 10/03/2022 Fever 05/28/2014 10/03/2014 Abdominal pain 05/28/2014 10/03/2022 Cough 05/28/2014 10/03/2014 Bladder infection, acute 05/28/201408/2015 Medical Home 12/04/2011 03/06/2012 [facility] Care Contract 04/23/2010 012 Overview (04/23/2010): This patient, PCP and Care Guide have signed a letter agreeing on a set of goals for diabetes, hypertension and/or CHF. Please look for [facility] Care Goal Contract in Chart Review/ Letters and support this effort. Please direct questions to Care Guide Atiya EngelSocorro Mohannoemí Phone number [phone]. Other abnormal glucose 09/17/200704/08 Pain in joint, shoulder region 03/16/2007 06/12/2012 Pain in joint, pelvic region and thigh 03/16/2007 06/12/2012 Encounter for long-term (cur rent) use of other medications 03/16/2007 10/03/2022 Obesity, unspecified 03/16/2007 023 Hypertension 02/11/2007 10/03/2022 Diabetes type 2, uncontrolled 10/03/2022 Endometrioid adenocarcinoma 10/03/2022 Overview (04/28/2012): [place] Syncope 10/03/2022 Bradycardia 10/03/2022 Syncope, cardiogenic 023 Encounters Date Type Department Care Team Description 08/14/[address] [phone] Lyn Story NP Refill Request (Ozempic) 08/04/2025 4:17 PM FLOATER OPERATOR - 08/04/2025 11:59 PM FLOATER OPERATOR Hospital Encounter [facility] [address] [place] [address] Rome Valdes MD Sensory ataxia 08/04/2025 3:00 PM FLOATER OPERATOR Office Visit [facility] [address] [place] [phone] Rome Valdes MD Consult 08/04/2025 Travel 08/04/[address] [phone] Lyn Story NP Results 08/03/2025 Travel 07/11/[address] [phone] Lyn Story NP Refill Request (Amlodipine, Escitalopram Oxalate) 07/05/2025 Travel 07/04/2025 Telephone [facility] [place] [address] [place] [address] Casey Martin, RN Device Check (Pacemaker MRI Checklist) 06/27/[address] [phone] Lyn Story NP Appointments 06/20/2025 1:50 PM CDT Office Visit [address] [phone] Lyn Story NP Medicare ANNUAL (subsequent) Visit (Follow up from falls /Discuss testing for hydrocephalus ) 06/20/2025 Travel from Last 3 Months Immunizations Immunization Administration Dates Next Due COVID-19 VACCINE SPIKEVAX (M ODERNA 50MCG/0.5ML) 12YO+ PFS 08/05/2023 COVID-19 vaccine (Moderna 100mcg/0.5mL) PF, MDV 09/17/2021 COVID-19 vaccine (Devario-Bio NTech 30mcg/0.3mL) 12YO+ BIVALENT PF, MDV 10/03/2022 COVID-19 vaccine (Devario-Bio NTech 30mcg/0.3mL) PF, MDV 12/12/2020,11/21/2020 Influenza, High-dose Inactivated 08/29/2016,07/23,07/11/2014 Influenza, IIV3 (Age >=3 years) 06/24/20 13,06/12/2012,08/09/2011,07/10 Influenza, Inactivated AIIV4 (Age 65+ Years) Preserv Free 08/05/2023,08/19/2022,05/29/2021 Influenza, Inactivated IIV3 (Age 65+ Years) Preserv Free 08/31/2024,06/15/2019,06/08/2018,07/21 Pneumococcal Poly,23-Valent (Pneumovax) 08/20/2019,07/10/2010,09/22/2009 Pneumococcal conj 13-Valent (Prevnar 13) 03/01/2016 RSV, Recombinant ADJ Reconst ituted (Arexvy 120MCG/0.5mL) 05/11/2024 Td (Age >=7 Years) 02/27/2004 Tdap 11/16/2024,12/23/2013 Zoster (Shingrix-RZV, recombinant) 04/09/2023, Zoster (Zostavax-ZVL, live) [...] PHQ-2 Answer Date Recorded PHQ-2 TOTAL SCORE 1 06/20/2025 Social Connections Answer Date Recorded Do you often feel lonely or isolated from those around you? 0 06/20/2025 Alcohol Use Answer Date Recorded How often do you have a drink containing alcohol ? 1 08/04/2025 How many drinks containing a lcohol do you have on a typical day when you are drinking? 0 08/04/2025 How often do you have five or more drinks on one occasion? 2 08/04/2025 Financial Resource Strain Answer Date R ecorded Difficulty of Paying Living Expenses 3 06/20/2025 Difficulty of Paying Living Expenses Not on file 06/20/2025 Food Insecurity Answer Date Recorded Do you worry your food will run out before you are able to buy more? 1 06/20/2025 Transportation Needs Answer Date Record ed Does lack of transportation keep you from medica l appointments? 1 06/20/2025 Does lack of transportation keep you from work, meetings or getting things that you need? 1 06/20/2025 Housing Stability Answer Date Recorded What is your housing situation today? 1 06/20/2025 Interpersonal Safety Answer Date Record ed Are you being hit, kicked, p ushed or yelled at (see row info)? No 02/17/2025 Interpersonal Safety Abuse 12 - 18 Not on file 02/17/2025 Interpersonal Safety Ambulatory Vulnerability No t on file 02/17/2025 Utilities Answer Date Recorded Do you have trouble paying f or utilities (for example, heat, electricity, water, phone)? 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 Not on file Not on file Not on file Obstetrics History Para Term AB IAB SAB Ectopic Multiple Livin g Live Births 2 2 0 0 0 0 0 0 Date Outcome GA Total Labor Labor/2nd/3rd Weight Sex Type Anes PTL Natalia A1 A5 Name Clin Para Para Last Filed Vital Signs Vital Sign Reading Time Taken Comments Blood Pressure 148/74 08/04/2025 2:52 PM FLOATER OPERATOR Pulse 72 08/04/2025 2:52 PM FLOATER OPERATOR Temperature 37.4 C (99.4 F) 02/17/2025 3:24 AM CDT Respiratory Rate 18 02/17/2025 3:24 AM CDT Oxygen Saturation 95% 08/04/2025 2:52 PM FLOATER OPERATOR Inhaled Oxygen Concentration - - Weight 79.7 kg (175 lb 9.6 oz) 06/20/2025 2:20 P M CDT Height 156.5 cm (5' 1.61) 06/20/2025 2:20 PM CD T Body Mass Index 32.52 06/20/2025 2:20 PM CDT Plan of Treatment Upcoming Encounters Date Type Department Care Team (Latest Contact Info) Description 08/24/2025 4:30 PM FLOATER OPERATOR Appointment [facility] [address] [place] [address] 08/24/2025 4:45 PM FLOATER OPERATOR Appointment [facility] Pacemaker MRI/CT [address] [place] [address] 10/06/2025 3:00 PM FLOATER OPERATOR Office Visit [facility] [address] [place] [address] Rome Valdes MD [address] [place] [address] 11/04/2025 Cardiac Device Check [facility] [phone] Health Maintenance Due Date Last Done Comments COVID-19 vaccine series ( season) 2025 05/29/2024, 08/05/2023, 10/03/2022, Additional history exists Influenza Vaccine (#1) 2025 , 08/05/2023, 08/19/2022, Additional history exists BMI (ht and wt on same day) for age 18+ 06/20/2026 06/20/2025, 02/24/2025, 02/05/2024, Additional history exists Depression screening for age 12+ 06/20/2026 06/20/2025, 11/10/2023, 11/06/2023, Additional history exists Medicare Wellness for age 65+ 06/21/2026 06/20/2025, 11/06/2023, 02/05/2021, Additional history exists Tetanus booster 11/16/2034 11/16/2024, 04/0 11/2013, 02/27/2004 Hepatitis C screening for age 18-79 Completed 08/30/2010 DEXA/DXA scan for age 65+ Completed 10/27/2017, 09/2008 Pneumococcal series for age 50+ Completed 08/20/2019, 09/02/2017, 03/01/2016, Additional history exists Zoster (shingles) series for age 50+ Completed 04/09/2023, 12/22/2022, 03/13/2012 RSV vaccine for adults or Completed 05/11/2024 Hepatitis B series for 19+ Aged Out N o longer eligible based on patient's age to complete this topic Medical Devices Implanted Type Area Dye Tank Tender Device Identifier Shelf Expiration Date Model / Serial / Lot Locking Distal Fibula Plate, Right Implanted:Qty: 1 on 03/29/2019 by Barron Cain DPM at [facility] Right: Ankle [employer] [id number] / / Description:From vendor tray 4 Mm Cancellous, Short Thread, Low Profile Screw, Stainless Steel Implanted:Qty: 1 on 03/29/2019 by Barron Cain DPM at [facility] Right: Ankle [employer] AR-[id number] / / Description:From vendor tray 4 Mm Cancellous, Short Thread, Low Profile Screw, Stainless Steel Implanted:Qty: 1 on 03/29/2019 by Barron Cain DPM at [facility] Right: Ankle [employer] AR-8840C-50 / / Description:From vendor tray 2.7 Mm, Locking Screw, Low Profile, Stainless Steel Implanted:Qty: 2 on 03/29/2019 by Barron Cain DPM at [facility] Right: Ankle [employer] AR-[id number]-14 / / Description:From vendor tray 2.7 Mm Locking Screw, Low Profile, Stainless Steel Implanted:Qty: 2 on 03/29/2019 by Barron Cain DPM at [facility] Right: Ankle [employer] AR-[id number]-16 / / Description:From vendor tray 3.5 Mm Cortical Screw Implanted:Qty: 1 on 03/29/2019 by Barron Cain DPM at [facility] Right: Ankle [employer] AR-8835-14 / / Description:From vendor tray 3.5mm Locking Screw, Low Profile, Stainless Steel Implanted:Qty: 2 on 03/29/2019 by Barron Cain DPM at [facility] Right: Ankle [employer] AR-[id number]-12 / / Description:From vendor tray 3.5mm Locking Screw, Low Profile, Stainless Steel Implanted:Qty: 1 on 03/29/2019 by Barron Cain DPM at [facility] Right: Ankle [employer] AR-8835L-14 / / Description:From vendor tray 3.5 Mm Cortical Screw Implanted:Qty: 1 on 03/29/2019 by Barron Cain DPM at [facility] Right: Ankle [employer] AR-8835-46 / / Description:From vendor tray Explanted Type Area Dye Tank Tender Device Identifier Shelf Expiration Date Model / Serial / Lot 3.5 Mm Cortical Screw Explanted:Qty: 1 on 03/29/2019 by Barron Cain DPM at [facility] Right: Ankle [employer] AR-8835-18 / / Description:From vendor tray 3.5 Mm Cortical Screw Explanted:Qty: 1 on 03/29/2019 by Barron Cain DPM at [facility] Right: Ankle [employer] AR-[id number] / / Description:From vendor tray Procedures Procedure Name Priority Date/Time Associated Diagnosis Comments FOLIC ACID Today 08/04/2025 4:21 PM FLOATER OPERATOR Sensory ataxia VITAMIN B12 Today 08/04/2025 4:21 PM FLOATER OPERATOR Sensory ataxia MR HEAD BRAIN WO Routine 08/03/2025 1:36 PM FLOATER OPERATOR Accidental fall, initial encounter Concern about memory Balance problem Injury of head, subsequent encounter HEMOGLOBIN A1C MONITORING (POCT) STAT 06/20/2025 3:41 PM CDT Type 2 diabetes mellitus without complication, with long-term current use of insulin (HC) LYME SCREEN W/REFLEX Routine 06/20/2025 3:41 PM CDT Accidental fall, initial encounter Concern about memory Balance problem Injury of head, subsequent encounter XR DXA BONE DENSITY 2 SITES AXIAL Routine 10/27/2017 1:20 PM FLOATER OPERATOR Other specified menopausal and perimenopausal disorders (CODE) Osteoporosis screening ANTI HCV Routine 08/30/2010 4:20 PM FLOATER OPERATOR Elevated LFT's from Last 3 Months or Most Recently Relevant to Health Maintenance Results * FOLIC ACID (08/04/2025 4:21 PM FLOATER OPERATOR) FOLIC ACID 16.4 4.6 - 34.8 ng/mL 08/04/2025 5:46 PM FLOATER OPERATOR [facility] Blood BLOOD SPECIMEN / Unknown Venipuncture / Unknown 08/04/2025 4:21 PM FLOATER OPERATOR 08/04/2025 4:24 PM FLOATER OPERATOR [facility] - 08/04/2025 5:46 PM FLOATER OPERATOR Biotin supplements may cause clinically significant interference for this test assay. If interference is suspected, it is strongly recommended that biotin is discontinued for at least one week prior to retesting. Rome Valdes MD CHEMISTRY Final Res ult Performing Organization Address [facility]/ZIP Co de Phone Number [facility] [address] [place] [address], * VITAMIN B12 (08/04/2025 4:21 PM FLOATER OPERATOR) VITAMIN B12 472 232 - 1,245 pg/mL 08/04/2025 5:46 PM FLOATER OPERATOR [facility] Blood BLOOD SPECIMEN / Unknown Venipuncture / Unknown 08/04/2025 4:21 PM FLOATER OPERATOR 08/04/2025 4:24 PM FLOATER OPERATOR [facility] - 08/04/2025 5:46 PM FLOATER OPERATOR Biotin supplements may cause clinically significant interference for this test assay. If interference is suspected, it is strongly recommended that biotin is discontinued for at least one week prior to retesting. Rome Valdes MD CHEMISTRY Final Res ult Performing Organization Address City/[facility]/ZIP Co de Phone Number [facility] [address] [place] [address], * MR HEAD BRAIN WO (08/03/2025 1:36 PM FLOATER OPERATOR) Anatomical Region Laterality Modality BRAIN, HEAD Magnetic Resonan ce 08/03/2025 2:16 PM FLOATER OPERATOR Impressions 08/03/2025 2:16 PM FLOATER OPERATOR 1. No acute intracranial abnormality 2. Moderate generalized cerebral volume loss. Chronic deep white matter small vessel ischemic changes 3. No acute or chronic intracranial hemorrhage 4. Small left mastoid effusion Dictated by Ariel Moreno MD @ 08/03/2025 2:16:43 PM (Electronically Signed) Narrative 08/03/2025 2:16 PM FLOATER OPERATOR For Patients: As a result of the Cures Act, medical imaging exams and procedure reports are released immediately into your electronic medical record. You may view this report before your referring provider. If you have questions, please contact your health care provider. INDICATION: Accidental falls. Memory loss. Loss of balance. Comparison 02/17/2025. Technique: Multiplanar T1, T2, FLAIR and diffusion-weighted imaging. FINDINGS: Moderate generalized volume loss. Scattered patchy T2/FLAIR signal hyperintensity within the white matter both supra hemispheres are nonspecific and likely represent chronic deep white matter small ischemic changes. No intracranial hemorrhage. No abnormal ventricular dilatation. Intracranial vascular flow voids are preserved. No mass effect. No midline shift. No restricted diffusion to suggest acute ischemia. No susceptibility artifact of remote hemorrhage. Bilateral orbits are unremarkable. Normal appearing sella. Visualized paranasal sinuses are unremarkable. Small left mastoid effusion. Procedure Note Ariel Moreno MD, PhD - 08/03/2025 For Patients: As a result of the Cures Act, medical imagingexams and procedure reports are released immediately into your electronicmedical record. You may view this report before your referring provider.If you have questions, please contact your health care provider. INDICATION: Accidental falls. Memory loss. Loss of balance. Comparison 02/17/2025. Technique: Multiplanar T1, T2, FLAIR and diffusion-weighted imaging. FINDINGS: Moderate generalized volume loss. Scattered patchy T2/FLAIR signalhyperintensity within the white matter both supra hemispheres arenonspecific and likely represent chronic deep white matter small ischemicchanges. No intracranial hemorrhage. No abnormal ventricular dilatation.Intracranial vascular flow voids are preserved. No mass effect. No midline shift. No restricted diffusion to suggest acute ischemia. No susceptibility artifact of remote hemorrhage. Bilateral orbits are unremarkable. Normal appearing sella. Visualized paranasal sinuses are unremarkable. Small left mastoideffusion. IMPRESSION: 1. No acute intracranial abnormality 2. Moderate generalized cerebral volume loss. Chronic deep white mattersmall vessel ischemic changes 3. No acute or chronic intracranial hemorrhage 4. Small left mastoid effusion Dictated by Ariel Moreno MD @ 08/03/2025 2:16:43 PM (Electronically Signed) Lyn Story NP MR Final Result * LYME SCREEN W/REFLEX (06/20/2025 3:41 PM CDT) [facility] LYME AB, SCREEN < or = 0.90 index 06/22/2025 4:27 PM CDT Flypaper Comment: REFERENCE RANGE: < OR = 0.90 Index Index Interpretation < OR = 0.90 NEGATIVE 0.91 - 1.09 EQUIVOCAL > OR = 1.10 POSITIVE This assay measures Lyme Disease (Borrelia burgdorferi) IgG plus IgM antibodies; it does not distinguish results that are both IgG and IgM positive from results that are either IgG or IgM positive. As recommended by the Centers for Disease Control and Prevention (CDC), all samples with positive or equivocal results in this screening assay will be tested using separate supplemental Lyme IgG and IgM immunoassays. Positive or equivocal screening assay results should not be interpreted as truly positive until verified as such using the supplemental assays. Screening and/or supplemental tests for Lyme disease antibodies may be falsely negative in early stages of Lyme disease, including the period when erythema migrans is apparent. These assays may be falsely positive in patients with other spirochetal diseases (e.g., syphilis) or infectious mononucleosis. Blood BLOOD SPECIMEN / Unknown [facility] / Unknown 06/20/2025 3:41 PM CDT 06/20/2025 3:41 PM CDT us Lyn Story NP SEND OUTS Final Result [facility] [address] [place] [address], * (ABNORMAL) STAT Hemoglobin A1C (06/20/2025 3:41 PM CDT) Pathologist [facility] HEMOGLOBIN A1C MONITORING (POCT) 12.4(H) <=6.4 % 06/20/2025 4:07 PM CDT [facility] Blood BLOOD SPECIMEN / Unknown [facility] / Unknown 06/20/2025 3:41 PM CDT 06/20/2025 3:41 PM CDT Narrative [facility] - 06/20/2025 4:07 PM CDT (<=6.9%) Indicates good control (7.0% to 7.9%) Indicates fair control (>=8.0%) Indicates poor control NOTE: These thresholds are guidelines and individual targets may vary. Falsely low levels may be seen with: Recent Transfusion, Recent Significant Blood Loss, Hemolytic Diseases, or Falsely elevated levels may be seen with: Untreated Anemias, Splenectomy us Lyn Story METEOROLOGICAL EQUIPMENT REPAIRER CHEMISTRY Final Result Performing Organization Address [facility] Co de Phone Number [facility] [address] [place] [address] * XR DXA BONE DENSITY 2 SITES AXIAL (10/27/2017 1:20 PM FLOATER OPERATOR) Anatomical Region Laterality Modality Spine, HIPS, HIPL, HIPR Bone Den sitometry Narrative 10/28/2017 2:29 PM FLOATER OPERATOR Please see scanned document for results of this study. us Axel Tidwell DO DEXA Final Res ult * ANTI HCV (08/30/2010 4:20 PM FLOATER OPERATOR) ANTI HCV Non-reacti ve [facility] Blood specimen (specimen) BLOOD SPECIMEN / Unknown 08/30/2010 4:20 PM FLOATER OPERATOR 08/30/2010 4:02 PM FLOATER OPERATOR us Axel Tidwell DO SEND OUTS Final Res ult Performing Organization Address [facility]/ZIP Co de Phone Number [facility] INTERNAL ZIP [phone] [address] from Last 3 Months or Most Recently Relevant to Health Maintenance Insurance [place] MEDICARE PART A HB ONLY BLUE CROSS [place] BLUE HB ONLY MEDICARE PART B HB ONLY MEDICARE PART A HB ONLY ([place]) [id number] [place] [id number] MEDICARE PART A HB ONLY MEDICARE PART B HB ONLY BLUE [place]OSS [place] BLUE HB ONLY BLUE [place]OSS [place] BLUE MR PB ONLY BLUE CROSS [place] BLUE HB ONLY Advance Directives * Full [...] 3:45 PM 06/02/2014 10:56 AM Care Teams Featheredge Machine Operator Relationship Specialty Start Date End Date Lyn Story NP [address] [place] [address] [place] [address] PCP - General Nurse Practitioner - Family 02/05/24 Dolores Iyer RN [address], [place] [id number] Inclusion Intern 12/18/21
[2025-08-21 10:05] VITALS: BP 142/83; PULSE 62; RESP 18; TEMP 36.4; O2SAT 95; BMI 30.1
--- NOTE | 2025-08-21 10:14 | CRLHL7_ITS ---
For Patients: As a result of the Century Cures Act, medical imaging exams and procedure reports are released immediately into your electronic medical record. You may view this report before your referring provider. If you have questions, please contact your health care provider. INDICATION: Lateral foot pain injury 1 week ago TECHNIQUE: Three views right foot FINDINGS/IMPRESSION: Nondisplaced transverse fracture at the base of the 5th metatarsal. Degenerative change of the 1st MTP joint vascular calcifications. Postsurgical fixation the medial and lateral malleolus. Fractured screw partially seen projected between the fibula and tibia. Dictated by Radha García MD @ 08/21/2025 10:40:37 AM (Electronically Signed)
--- NOTE | 2025-08-21 10:16 | ED_ITS ---
HPI - General Adult General Date Seen: 08/21/25 Chief complaint: Extremity Pain/Injury, Lower Stated complaint: right foot injury Time Seen by Provider: 08/21/25 09:53 History of Present Illness HPI narrative: Patient is a 75-year-old woman who stubbed her right foot about a week ago. She thought it was getting better but it is not fully better and sometimes it is hard to walk. She notes pain primarily over the anterior talofibular ligaments, she has some bruising noted in her toes but does not have any pain in her toes or midfoot. Related Data Home Medications ?Medication ?Instructions ?Recorded ?Confirmed amlodipine 5 mg tablet 5 mg PO DAILY 09/17/2208/21 escitalopram oxalate 10 mg tablet 10 mg PO DAILY 09/1708/21/25 flash glucose sensor (FreeStyle #1 ea 09/17/22 3 Sofia 14 Day Sensor kit) pen needle, diabetic 32 gauge x #50 ea 09/17/22 (BD Ultra-Fine Stormy Pen Needle) sodium bicarbonate 650 mg tablet 650 mg PO BID 2 08/21/25 acetaminophen 500 mg tablet 1,000 mg PO TID 09/19/22 1 10/21/24 aspirin 81 mg tablet,delayed 81 mg PO DAILY 09/19/22 1 10/21/24 release cholecalciferol (vitamin D3) 25 1,000 unit PO DAILY 08/21/25 mcg (1,000 unit) capsule diclofenac sodium 1 % topical gel 2 g topical QID 09/2308/21/25 atorvastatin 10 mg tablet mg 10/16/24 insulin glargine 100 unit/mL (3 unit subcut 10/16/24 mL) subcutaneous pen (Lantus Solostar U-100 Insulin) levothyroxine 50 mcg tablet mcg DAILY 10/16/24 semaglutide 0.25 mg or 0.5 mg (2 mg subcut 10/16/24 mg/3 mL) subcutaneous pen injector (Ozempic) Previous Rx's ?Medication ?Instructions ?Recorded oxycodone 5 mg tablet 2.5 - 5 mg (0.5 - 1 x 5 mg) PO 10/24/22 Q4-6H PRN pain #42 tabs oxycodone 5 mg tablet 5 mg PO Q4-8H PRN pain #25 t abs 11/05/22 amoxicillin 500 mg capsule 2,000 mg (4 x 500 mg) PO ON CE 01/14/23 pre-med #4 caps Allergies Allergy/AdvReac Type Severity Reaction Status Date / Time pravastatin Allergy Unknown myalgia Verified 10/16/24 12:13 exenatide Allergy Diarrhea Verified 10/16/24 12:13 NSAIDS (Non-Steroidal Allergy Verified 10/16/24 12:13 Anti-Inflamma pioglitazone Allergy Verified 10/16/24 12:13 rosuvastatin AdvReac myalgia Verified 10/16/24 12:13 [facility] Medical History (Updated 08/21/25 @ 11:12 by Victoria Anthony MD) History of vaginal delivery Endometrioid carcinoma DDD (degenerative disc disease), lumbar ?M51.36 - Other intervertebral disc degeneration, lumbar region (ICD-10) Foraminal stenosis of lumbar region ?M48.061 - Spinal stenosis, lumbar region without neurogenic claudication (ICD-10) Fatty liver ?K76.0 - Fatty (change of) liver, not elsewhere classified (ICD-10) Elevated liver enzymes ?R74.8 - Abnormal levels of other serum enzymes (ICD-10) Otosclerosis ?H80.90 - Unspecified otosclerosis, unspecified ear (ICD-10) Mixed hearing loss, bilateral ?H90.6 - Mixed conductive and sensorineural hearing loss, bilateral (ICD-10) Vitamin D deficiency ?E55.9 - Vitamin D deficiency, unspecified (ICD-10) Chronic kidney disease, stage 3 ?N18.30 - Chronic kidney disease, stage 3 unspecified (ICD-10) Hyperlipidemia ?E78.5 - Hyperlipidemia, unspecified (ICD-10) History of nephrolithiasis ?Z87.442 - Personal history of urinary calculi (ICD-10) Diabetes ?E11.9 - Type 2 diabetes mellitus without complications (ICD-10) Osteoarthritis of left hip ?M16.12 - Unilateral primary osteoarthritis, left hip (ICD-10) Pre-syncope ?R55 - Syncope and collapse (ICD-10) Hypoglycemia ?E16.2 - Hypoglycemia, unspecified (ICD-10) History of migraine headaches ?Z86.69 - Personal history of other diseases of the nervous system and sense organs (ICD-10) Episode of altered cognition ?R41.89 - Other symptoms and signs involving cognitive functions and awareness (ICD-10) Diabetes mellitus type 2 in obese ?E11.69 - Type 2 diabetes mellitus with other specified complication (ICD-10) ?E66.9 - Obesity, unspecified (ICD-10) Complete atrioventricular block ?I44.2 - Atrioventricular block, complete (ICD-10) Bradycardia ?R00.1 - Bradycardia, unspecified (ICD-10) Endometriosis ?N80.9 - Endometriosis, unspecified (ICD-10) Migraine headache ?G43.909 - Migraine, unspecified, not intractable, without status migrainosus (ICD-10) Depression ?F32.A - Depression, unspecified (ICD-10) Incontinence of urine ?R32 - Unspecified urinary incontinence (ICD-10) Elevated cholesterol ?E78.00 - Pure hypercholesterolemia, unspecified (ICD-10) Hypertension ?I10 - Essential (primary) hypertension (ICD-10) Sleep apnea ?G47.30 - Sleep apnea, unspecified (ICD-10) Degenerative joint disease (DJD) of lumbar spine ?M47.816 - Spondylosis without myelopathy or radiculopathy, lumbar region (ICD-10) Tendinitis involving right hip abductors ?M76.891 - Other specified enthesopathies of right lower limb, excluding foot (ICD-10) Greater trochanteric bursitis of right hip ?M70.61 - Trochanteric bursitis, right hip (ICD-10) Surgical History (Updated 06/30/25 @ 10:15 by Anna Cochran ~ [facility], [facility]) History of total left hip replacement (10/23/22) ?Z96.642 - Presence of left artificial hip joint (ICD-10) History of ear surgery ?Z98.890 - Other specified postprocedural states (ICD-10) Status post placement of cardiac pacemaker ?Z95.0 - Presence of cardiac pacemaker (ICD-10) Status post open reduction with internal fixation (ORIF) of fracture of ankle (~2016) ?Z98.890 - Other specified postprocedural states (ICD-10) ?Z87.81 - Personal history of (healed) traumatic fracture (ICD-10) History of arthroscopy of right shoulder (06/11/07) ?Z98.890 - Other specified postprocedural states (ICD-10) History of carpal tunnel surgery of right wrist (04/24/16) ?Z98.890 - Other specified postprocedural states (ICD-10) History of carpal tunnel surgery of left wrist (05/29/16) ?Z98.890 - Other specified postprocedural states (ICD-10) H/O: hysterectomy ?Z90.710 - Acquired absence of both cervix and uterus (ICD-10) History of lumbar laminectomy ?Z98.890 - Other specified postprocedural states (ICD-10) History of total right hip arthroplasty (08/20/07) ?Z96.641 - Presence of right artificial hip joint (ICD-10) Family History , RN) Mother CHF (congestive heart failure) High blood pressure Heart disease Brother CHF (congestive heart failure) High blood pressure Diabetes Father Alzheimers disease Psychiatric illness Social History (Reviewed 12/03/22 @ 14:09 by Anna Cochran ~ [facility], [facility]) Smoking Status: Never smoker Do you use any of these nicotine containing products: None Second hand tobacco smoke exposure: No How often do you have a drink containing alcohol: 2-4 times a month Alcohol type: beer and hard liquor How many standard drinks containing alcohol do you have on a typical day: 1 or 2 How often do you have six or more drinks on one occasion: Never AUDIT-C Alcohol total score: 2 Non-prescribed substance use: denies use Caffeine: Yes (coffee, 1-2 cups/day) service: No Exam 2 Narrative: Exam Narrative: Vital signs reviewed In general, alert, nontoxic woman. Extremities: Examination of the right foot shows a little bit of older- appearing bruising near her toes, some tenderness over the anterior talofibular ligaments, less over the 5th metatarsal. Midfoot and ankle are nontender. Skin: Warm and dry, intact. Const: Vital Signs, click to edit/add: Vital Signs - 24 hr 08/21/25 10:05 Temperature 97.5 F L Pulse Rate [Pulse Oximeter] 62 Respiratory Rate 18 Blood Pressure [Ri ght Upper Arm] 142/83 H Pulse Oximetry 95 Oxygen Delivery Me thod Room Air Course Course ED Course: X-rays of the right foot ordered which by my review show a nondisplaced fracture through the base of the 5th metatarsal. In discussing this with her, she uses a cane and a walker at home to get around. She does have to navigate some stairs. I put her in a boot here in she seems to be able to use that okay, we had her use a walker and recommended offloading her weight on the right foot as able. We made an appointment for her to follow up in orthopedics. Discussed with her I would like her to try just using Tylenol for the time being, I am hesitant to add narcotics for pain control as I am concerned about her fall risk. Elevated as able. Return as needed. Diagnosis: Right 5th metatarsal base fracture, closed Vital Signs Vital signs: Initial Vital Signs Temperature 97.5 F L 08/21/25 10:05 Temperature Source Temporal Artery Scan 08/21/25 10:05 Pulse Rate 62 08/21/25 10:05 Respiratory Rate 18 08/21/25 10:05 Blood Pressure 142/83 H 08/21/25 10:05 Blood Pressure Mean 102 08/21/25 10:05 Blood Pressure Position Sitting 08/21/25 10:05 Pulse Oximetry 95 08/21/25 10:05 Oxygen Delivery Method Room Air 08/21/25 10:05 Vital Signs Temperature 97.5 F L 08/21/25 10:05 Pulse Rate 62 08/21/25 10:05 Respiratory Rate 18 08/21/25 10:05 Blood Pressure 142/83 H 08/21/25 10:05 Pulse Oximetry 95 08/21/25 10:05 Oxygen Delivery Method Room Air 08/21/25 10:05 Temperature 97.5 F L 08/21/25 10:05 Pulse Rate 62 08/21/25 10:05 Respiratory Rate 18 08/21/25 10:05 Blood Pressure 142/83 H 08/21/25 10:05 Pulse Oximetry 95 08/21/25 10:05 Oxygen Delivery Method Room Air 08/21/25 10:05 Medical Decision Making Imaging Data Foot x-ray: Attestation: I have reviewed the pertinent imaging results. Radiologist's impression: Patient: BRENT COLIN Facility: [facility] Site . Site : 1950 Study: XRay-Extremity Right FOOT 3V-08/21/2025 10:29:36 AM Ordering Physician: Gabrielle Kessler Final Report: INDICATION: Lateral foot pain injury 1 week ago TECHNIQUE: Three views right foot FINDINGS/IMPRESSION: Nondisplaced transverse fracture at the base of the 5th metatarsal. Degenerative change of the 1st MTP joint vascular calcifications. Postsurgical fixation the medial and lateral malleolus. Fractured screw partially seen projected between the fibula and tibia. Dictated by Radha García MD @ 08/21/2025 10:40:37 AM Discharge Plan Discharge Clinical Impression: Closed nondisplaced fracture of fifth right metatarsal bone Patient Disposition: Home, Self-Care Condition: Stable Instructions: Foot Fracture in Adults (ED) Additional Instructions: Use boot for mobilization of your foot. I would recommend against driving, definitely do not drive with the boot on. Orthopedic follow-up on August 25 at 12:45 p.m.. Tylenol, ice as needed for pain. Elevate your foot when able. Prescriptions: No Action escitalopram oxalate 10 mg tablet 10 mg PO DAILY amlodipine 5 mg tablet 5 mg PO DAILY (DME) pen needle, diabetic [BD Ultra-Fine Stormy Pen Needle] 32 gauge x 5/32 needle See Rx Instructions .ROUTE .MEDSUPPLY Qty: 50 Rx Instructions: As directed sodium bicarbonate 650 mg tablet 650 mg PO BID (DME) FreeStyle Sofia 14 Day Sensor Kit See Rx Instructions .ROUTE .MEDSUPPLY Qty: 1 Patient Comments: USE 1 SENSOR TO MONITOR BLOOD GLUCOSE FOR 14 DAYS, AFTER 14 [address] WITH NEW SENSOR Rx Instructions: As directed cholecalciferol (vitamin D3) 25 mcg (1,000 unit) capsule 1,000 unit PO DAILY acetaminophen 500 mg tablet 1,000 mg PO TID Rx Instructions: NO MORE THAN 4000 MG/DAY aspirin 81 mg tablet,delayed release (DR/EC) 81 mg PO DAILY diclofenac sodium 1 % gel 2 g topical QID oxycodone 5 mg tablet 2.5 - 5 mg PO Q4-6H MDD 6 PRN (Reason: pain) Qty: 42 0RF Rx Instructions: Take as needed for postop pain: 2.5mg mild pain, 5mg moderate-severe pain; wean as tolerated. atorvastatin 10 mg tablet levothyroxine 50 mcg tablet DAILY insulin glargine [Lantus Solostar U-100 Insulin] 100 unit/mL (3 mL) insulin pen subcut Ozempic 0.25 mg or 0.5 mg (2 mg/3 mL) pen injector SUBCUT Patient Comments: [NO ORIGINAL SIG] oxycodone 5 mg tablet 5 mg PO Q4-8H PRN (Reason: pain) Qty: 25 0RF amoxicillin 500 mg capsule 2,000 mg PO ONCE Qty: 4 3RF Rx Instructions: Take 4 capsules (2000mg) 1 hour prior to dental appointment. Follow Up/Referrals: Axel Tidwell DO [Referring, Family Practice] Stand Alone Forms: MyHealth Info Instructions
== END 2025-08-21 11:30 | disposition home or self-care (01) ==
PROVIDERS: Emergency Provider Emergency Medicine; PCP Nurse Practitioner Family
DX: S92.534A Nondisplaced fracture of distal phalanx of right lesser toe(s), initial encounter for closed fracture (principal); W22.8XXA Striking against or struck by other objects, initial encounter
CPT/HCPCS: 73630; 99283; 99284